=== PATIENT | female | born 1970 | race Two or more races ===

== ENCOUNTER 2023-04-24 07:47 | Inpatient (IN) | payer OTHER ==
[2023-04-24] VITALS (39 sets, daily range): BP systolic 82–167; BP diastolic 52–97; TEMP 97.4–98.5; O2SAT 90–100
[~2023-04-24] VITALS: Ht 144.8 cm; Wt 104.3 kg
[2023-04-24] MEDS ORDERED: IBUP-1955 PO (09:30)
[2023-04-24] MEDS ORDERED: TAMS-12 PO (09:30)
[2023-04-24] MEDS ORDERED: OXYC-128 PO (09:30)
[2023-04-24] MEDS ORDERED: MORPHINE SULFATE INJ 2 MG/ML DISP.SYRIN IV PRN (10:30)
[2023-04-24] MEDS ORDERED: MAG HYDROX/AL HYDROX/SIMETH 30 ML UDC PO PRN (10:30)
[2023-04-24] MEDS ORDERED: ONDANSETRON HCL/PF 4 MG/2 ML VIAL IVP PRN (10:30)
[2023-04-24] MEDS ORDERED: Z GUARD REMEDY 4 OZ OINT TP PRN (10:30)
[2023-04-24 10:41] LABS: EOSINOPHILS # (AUTO) 0.9 K/uL (0.0-0.7); EOSINOPHILS % (AUTO) 7.6 % (0.0-6.0); MONOCYTES # (AUTO) 0.5 K/uL (0.1-1.30); RED BLOOD CELL COUNT(AUTO) 4.07 MIL/uL (4.0-5.2)
[2023-04-24 10:51] LABS: CALCIUM, SERUM 7.8 mg/dL (8.5-10.1); CREATININE 2.5 mg/dL (0.6-1.3); POTASSIUM 4.4 mmol/L (3.5-5.1)
[2023-04-24 10:52] LABS: INR 1.45 (0.91-1.10); PARTIAL THROMBOPLASTIN TIME 41.9 SEC (24.3-34.3)
[2023-04-24 10:56] LABS: BASOPHILS % (AUTO) 0.2 % (0.0-2.0); HEMATOCRIT 37 % (33-45); HEMOGLOBIN 12.3 g/dL (11.5-14.8); LYMPHOCYTES # (AUTO) 1.1 K/uL (0.8-4.8); LYMPHOCYTES % (AUTO) 9.9 % (20.0-44.0); MEAN CORPUSCULAR HEMOGLOBIN 30 PG (26.0-33.0); MEAN CORPUSCULAR HGB CONC 34 g/dl (31.0-36.0); MEAN CORPUSCULAR VOLUME 90 fL (82-100); MONOCYTES % (AUTO) 4.4 % (2.0-12.0); NEUTROPHILS # (AUTO) 8.9 K/uL (1.8-8.9); NEUTROPHILS % (AUTO) 77.9 % (43.0-81.0); RED CELL DISTRIBUTION WIDTH 15.4 % (11.5-15.0); WHITE BLOOD COUNT (AUTO) 11.5 K/uL (4.3-11.0)
[2023-04-24 11:00] LABS: PLATELET COUNT (AUTO) 14 K/uL (150-450)
[2023-04-24] MEDS: PANTOPRAZOLE 40 MG VIAL IV SCH (11:03)
[2023-04-24] MEDS: IV NS 0.9% 1,000 ML IV PRN ×2 (11:03→22:15)
[2023-04-24] MEDS: MEROPENEM 1 G in IV NS 0.9% 100 ML IV SCH ×2 (11:23→21:10)
[2023-04-24 12:59] LABS: BAND % (MANUAL) 18 % (0.0-5.0); LYMPHOCYTES % (MANUAL) 9 % (16-48); MONOCYTES % (MANUAL) 8 % (0-11.0); MYELOCYTES % 2 % (0-0); NEUTROPHILS % (MANUAL) 63 (42-76)
[2023-04-24 13:00] LABS: PLATELET ESTIMATE DECREASED
[2023-04-24] MEDS ORDERED: ROCURONIUM BROMIDE 50 MG/5 ML ONE (13:10)
[2023-04-24] MEDS ORDERED: SEVOFLURANE 250 ML BOTTLE IH ONE (13:10)
[2023-04-24] MEDS ORDERED: FENTANYL PF 100MCG/2ML AMPUL ONE (13:38)
[2023-04-24] MEDS: PHENYLEPHRINE 50 MG in IV NS 0.9% 245 ML IV PRN (15:03)
[2023-04-24] MEDS: PROPOFOL 100 ML IV PRN ×3 (15:51→22:58)
[2023-04-24 16:17] LABS: ABG BASE EXCESS -10.3 mmol/L; ABG OXYGEN SATURATION 89.4 % (92.0-98.5); ABG PCO2 54.1 mmHg (35.0-45.0); ABG PH 7.155 (7.350-7.450); ABG PO2 66.6 mmHg (75.0-100.0); AaDO2 192.7 mmHg; COHb 0.4 % (0.5-1.5); MetHb 0.3 % (0.0-1.5); O2Hb 88.8 % (94.0-97.0); PEEP,BG 5 cm H2O; SITE, ABG Right Brachial; VT, ABG 500 mL
[2023-04-24 17:50] LABS: ABG BASE EXCESS -6.7 mmol/L; ABG OXYGEN SATURATION 98.9 % (92.0-98.5); ABG PCO2 31.7 mmHg (35.0-45.0); ABG PH 7.363 (7.350-7.450); ABG PO2 157.7 mmHg (75.0-100.0); ABG TOTAL HEMOGLOBIN 11.8 G/dL (12.0-16.0); AaDO2 379.4 mmHg; COHb 0.1 % (0.5-1.5); MetHb 0.2 % (0.0-1.5); O2Hb 98.6 % (94.0-97.0); PEEP,BG 5 cm H2O; SITE, ABG Right Brachial; VENT MODE, BG AC 45%; VT, ABG 500 mL
[2023-04-24] MEDS ORDERED: ANESTHESIA TRAY IN PYXIS 1 EA TRAY MC ONE (17:50)
[2023-04-24 20:22] LABS: CREATININE, URINE 53.5 MG/DL (30.0-125.0); URINE TOTAL PROTEIN 206.5 mg/dL (0-11.9)
[2023-04-24 20:37] LABS: ABG BASE EXCESS -4.4 mmol/L; ABG OXYGEN SATURATION 96.8 % (92.0-98.5); ABG PCO2 37.6 mmHg (35.0-45.0); ABG PH 7.356 (7.350-7.450); ABG PO2 92.3 mmHg (75.0-100.0); AaDO2 294.1 mmHg; COHb 0.3 % (0.5-1.5); MetHb 0.3 % (0.0-1.5); O2Hb 96.2 % (94.0-97.0); PEEP,BG 10 cm H2O; SITE, ABG Left Radial; VT, ABG 400 mL
[2023-04-24 20:41] LABS: BASOPHILS % (AUTO) 0.3 % (0.0-2.0); EOSINOPHILS # (AUTO) 0.6 K/uL (0.0-0.7); EOSINOPHILS % (AUTO) 6.1 % (0.0-6.0); HEMATOCRIT 31 % (33-45); HEMOGLOBIN 10.4 g/dL (11.5-14.8); LYMPHOCYTES # (AUTO) 1.2 K/uL (0.8-4.8); LYMPHOCYTES % (AUTO) 12.2 % (20.0-44.0); MEAN CORPUSCULAR HEMOGLOBIN 30 PG (26.0-33.0); MEAN CORPUSCULAR HGB CONC 34 g/dl (31.0-36.0); MEAN CORPUSCULAR VOLUME 90 fL (82-100); MONOCYTES # (AUTO) 0.6 K/uL (0.1-1.30); MONOCYTES % (AUTO) 5.7 % (2.0-12.0); NEUTROPHILS # (AUTO) 7.3 K/uL (1.8-8.9); NEUTROPHILS % (AUTO) 75.7 % (43.0-81.0); RED BLOOD CELL COUNT(AUTO) 3.43 MIL/uL (4.0-5.2); RED CELL DISTRIBUTION WIDTH 15.7 % (11.5-15.0); WHITE BLOOD COUNT (AUTO) 9.6 K/uL (4.3-11.0)
[2023-04-24 20:47] LABS: APPEARANCE,URINE BLOODY (CLEAR); COLOR,URINE RED (YELLOW)
[2023-04-24 20:50] LABS: PLATELET COUNT (AUTO) 44 K/uL (150-450)
[2023-04-24 20:58] LABS: RBC,URINE TOO NUMEROUS TO COUN /HPF (0-2)
[2023-04-24 20:59] LABS: BACTERIA,URINE 1+ /HPF (None Seen); SQUAMOUS EPITHELIAL CELL,UR 0-2 /HPF (None Seen); WBC,URINE 21-50 /HPF (0-3)
[2023-04-24 21:09] LABS: EOSINOPHIL,URINE None Seen
[2023-04-24 21:14] LABS: ANISOCYTOSIS 1+; BAND % (MANUAL) 7 % (0.0-5.0); EOSINOPHILS % (MANUAL) 1 % (0-4); LYMPHOCYTES % (MANUAL) 13 % (16-48); MONOCYTES % (MANUAL) 8 % (0-11.0); NEUTROPHILS % (MANUAL) 70 (42-76); PLATELET ESTIMATE DECRE; REACTIVE LYMPHOCYTES 1 % (0-0)
[2023-04-24 21:15] LABS: TEAR DROP CELLS 2+
[2023-04-24] MEDS: ACETAMINOPHEN 650 MG/SUPP.RECT RC PRN (23:33)
[2023-04-25] VITALS (40 sets, daily range): BP systolic 83–112; BP diastolic 43–70; TEMP 98.1–100.1; O2SAT 95–100
[2023-04-25] MEDS: PROPOFOL 100 ML IV PRN ×6 (02:13→23:11)
[2023-04-25] MEDS: IV NS 0.9% 1,000 ML IV PRN ×2 (05:42→15:33)
[2023-04-25] MEDS: ACETAMINOPHEN 650 MG/SUPP.RECT RC PRN (05:55)
[2023-04-25 05:59] LABS: BASOPHILS % (AUTO) 0.3 % (0.0-2.0); EOSINOPHILS # (AUTO) 0.3 K/uL (0.0-0.7); EOSINOPHILS % (AUTO) 3.5 % (0.0-6.0); HEMATOCRIT 30 % (33-45); HEMOGLOBIN 10.4 g/dL (11.5-14.8); LYMPHOCYTES % (AUTO) 13.9 % (20.0-44.0); MEAN CORPUSCULAR HEMOGLOBIN 31 PG (26.0-33.0); MEAN CORPUSCULAR HGB CONC 34 g/dl (31.0-36.0); MEAN CORPUSCULAR VOLUME 91 fL (82-100); MONOCYTES # (AUTO) 0.8 K/uL (0.1-1.30); MONOCYTES % (AUTO) 11.6 % (2.0-12.0); NEUTROPHILS % (AUTO) 70.7 % (43.0-81.0); RED BLOOD CELL COUNT(AUTO) 3.34 MIL/uL (4.0-5.2); RED CELL DISTRIBUTION WIDTH 16.1 % (11.5-15.0); WHITE BLOOD COUNT (AUTO) 7.1 K/uL (4.3-11.0)
[2023-04-25 06:03] LABS: PLATELET COUNT (AUTO) 26 K/uL (150-450)
[2023-04-25 06:05] LABS: ALANINE AMINOTRANSFERASE 64 U/L (12-78); ALBUMIN 1.9 g/dL (3.4-5.0); ALKALINE PHOSPHATASE 119 U/L (46-116); BILIRUBIN,DIRECT 1.5 mg/dL (0.0-0.2); BILIRUBIN,TOTAL 2.5 mg/dL (0.2-1.0); CALCIUM, SERUM 7.1 mg/dL (8.5-10.1); CARBON DIOXIDE 23 mmol/L (21-32); CHLORIDE 106 mmol/L (98-107); CREATININE 1.4 mg/dL (0.6-1.3); GLUCOSE 77 mg/dL (74-106); MAGNESIUM 2.2 mg/dL (1.8-2.4); PHOSPHORUS 2.2 mg/dL (2.5-4.9); POTASSIUM 3.8 mmol/L (3.5-5.1); SODIUM SERUM 138 mmol/L (136-145); TOTAL PROTEIN, SERUM 5.3 g/dL (6.4-8.2); UREA NITROGEN, BLOOD 32 mg/dL (7-18)
[2023-04-25 06:17] LABS: CHOLESTEROL 94 mg/dL (<200); CREATINE KINASE, TOTAL 1767 U/L (26-192); LDL 20 mg/dL (0-99); THYROID STIMULATING HORMONE 0.655 uIU/mL (0.358-3.74); TRIGLYCERIDES 587 mg/dL (30-150)
[2023-04-25 06:30] LABS: HDL CHOLESTEROL < 10 mg/dL (40-60)
[2023-04-25 06:40] LABS: ASPARTATE AMINOTRANSFERASE 114 U/L (15-37)
[2023-04-25 07:02] LABS: BAND % (MANUAL) 4 % (0.0-5.0); EOSINOPHILS % (MANUAL) 3 % (0-4); LYMPHOCYTES % (MANUAL) 11 % (16-48); MONOCYTES % (MANUAL) 9 % (0-11.0); NEUTROPHILS % (MANUAL) 73 (42-76)
[2023-04-25 07:04] LABS: PLATELET ESTIMATE DECREASED
[2023-04-25] MEDS: MEROPENEM 1 G in IV NS 0.9% 100 ML IV SCH ×2 (08:11→20:31)
[2023-04-25] MEDS: PANTOPRAZOLE 40 MG VIAL IV SCH (08:11)
[2023-04-25 09:26] LABS: ABG BASE EXCESS -4.4 mmol/L; ABG OXYGEN SATURATION 98.7 % (92.0-98.5); ABG PCO2 37.5 mmHg (35.0-45.0); ABG PH 7.358 (7.350-7.450); ABG PO2 174.2 mmHg (75.0-100.0); ABG TOTAL HEMOGLOBIN 11.2 G/dL (12.0-16.0); AaDO2 212.4 mmHg; COHb 0.3 % (0.5-1.5); MetHb 0.5 % (0.0-1.5); O2Hb 97.9 % (94.0-97.0); SITE, ABG Right Radial
[2023-04-25 14:47] LABS: HIV-1 p24 ANTIGEN NON REACTIVE (NONREACTIVE); HIV-1/2 ANTIBODY NON REACTIVE (NONREACTIVE)
[2023-04-25] MEDS ORDERED: Sodium Phosphate 15 MMOL in IV NS 0.9% 245 ML IV ONE (16:00)
[2023-04-26] VITALS (57 sets, daily range): BP systolic 67–182; BP diastolic 36–122; TEMP 97.6–100.1; O2SAT 90–100
[2023-04-26] MEDS: IV NS 0.9% 1,000 ML IV PRN ×2 (02:16→22:31)
[2023-04-26 04:19] LABS: BASOPHILS % (AUTO) 0.2 % (0.0-2.0); EOSINOPHILS # (AUTO) 0.2 K/uL (0.0-0.7); EOSINOPHILS % (AUTO) 2.3 % (0.0-6.0); HEMATOCRIT 32 % (33-45); HEMOGLOBIN 10.8 g/dL (11.5-14.8); LYMPHOCYTES # (AUTO) 0.8 K/uL (0.8-4.8); MEAN CORPUSCULAR HEMOGLOBIN 31 PG (26.0-33.0); MEAN CORPUSCULAR HGB CONC 34 g/dl (31.0-36.0); MEAN CORPUSCULAR VOLUME 90 fL (82-100); MONOCYTES % (AUTO) 9.4 % (2.0-12.0); NEUTROPHILS # (AUTO) 8.1 K/uL (1.8-8.9); NEUTROPHILS % (AUTO) 80.1 % (43.0-81.0); RED BLOOD CELL COUNT(AUTO) 3.53 MIL/uL (4.0-5.2); RED CELL DISTRIBUTION WIDTH 16.1 % (11.5-15.0); WHITE BLOOD COUNT (AUTO) 10.1 K/uL (4.3-11.0)
[2023-04-26 04:41] LABS: PLATELET COUNT (AUTO) 24 K/uL (150-450)
[2023-04-26 04:56] LABS: ALBUMIN 1.7 g/dL (3.4-5.0); BILIRUBIN,TOTAL 3.2 mg/dL (0.2-1.0); CALCIUM, SERUM 7.3 mg/dL (8.5-10.1); CREATININE 1.1 mg/dL (0.6-1.3); MAGNESIUM 2.4 mg/dL (1.8-2.4); PHOSPHORUS 3.2 mg/dL (2.5-4.9); POTASSIUM 4.1 mmol/L (3.5-5.1); TOTAL PROTEIN, SERUM 5.4 g/dL (6.4-8.2)
[2023-04-26 05:06] LABS: BAND % (MANUAL) 4 % (0.0-5.0); EOSINOPHILS % (MANUAL) 3 % (0-4); LYMPHOCYTES % (MANUAL) 8 % (16-48); MONOCYTES % (MANUAL) 8 % (0-11.0); NEUTROPHILS % (MANUAL) 77 (42-76)
[2023-04-26 05:07] LABS: ANISOCYTOSIS 1+; PLATELET ESTIMATE DECREASED
[2023-04-26] MEDS: PROPOFOL 100 ML IV PRN ×6 (05:07→23:40)
[2023-04-26 06:07] LABS: PTH, INTACT 69 pg/mL (15-65)
[2023-04-26] MEDS: PANTOPRAZOLE 40 MG VIAL IV SCH (08:19)
[2023-04-26] MEDS: MEROPENEM 1 G in IV NS 0.9% 100 ML IV SCH (08:19)
[2023-04-26] MEDS ORDERED: DC PROPOFOL WHEN EXTUBATED XX PRN (09:00)
[2023-04-26 09:08] LABS: *SPE A/G RATIO 0.8 (0.7-1.7); *SPE ALBUMIN 2.1 g/dL (2.9-4.4); *SPE ALPHA-1-GLOBULIN 0.4 g/dL (0.0-0.4); *SPE ALPHA-2-GLOBULIN 0.6 g/dL (0.4-1.0); *SPE BETA GLOBULIN 0.8 g/dL (0.7-1.3); *SPE GLOBULIN, TOTAL 2.6 g/dL (2.2-3.9); *SPE M-SPIKE Not Observed g/dL (Not Observed); *SPE PROTEIN TOTAL 4.7 g/dL (6.0-8.5); *SPEGAMMA GLOBULIN 0.8 g/dL (0.4-1.8)
[2023-04-26 10:04] LABS: ABG BASE EXCESS -3.8 mmol/L; ABG OXYGEN SATURATION 93.5 % (92.0-98.5); ABG PCO2 31.8 mmHg (35.0-45.0); ABG PH 7.413 (7.350-7.450); ABG PO2 67.6 mmHg (75.0-100.0); ABG TOTAL HEMOGLOBIN 12.2 G/dL (12.0-16.0); AaDO2 108.9 mmHg; COHb 0.1 % (0.5-1.5); MetHb 0.2 % (0.0-1.5); O2Hb 93.2 % (94.0-97.0); SITE, ABG Right Radial
[2023-04-26] MEDS: CEFTRIAXONE 2 G in IV D5W 100 ML IV SCH (10:54)
[2023-04-26] MEDS: ACETAMINOPHEN 650 MG/SUPP.RECT RC PRN (12:09)
[2023-04-26 12:17] LABS: ABG BASE EXCESS -4.5 mmol/L; ABG PCO2 30.5 mmHg (35.0-45.0); ABG PH 7.413 (7.350-7.450); ABG PO2 56.3 mmHg (75.0-100.0); AaDO2 193.8 mmHg; COHb 0.6 % (0.5-1.5); MetHb 0.2 % (0.0-1.5); O2Hb 89.3 % (94.0-97.0); SITE, ABG Right Radial
[2023-04-26 14:40] LABS: ABG BASE EXCESS -6.9 mmol/L; ABG OXYGEN SATURATION 98.6 % (92.0-98.5); ABG PH 7.496 (7.350-7.450); ABG PO2 149.3 mmHg (75.0-100.0); ABG TOTAL HEMOGLOBIN 11.1 G/dL (12.0-16.0); AaDO2 185.8 mmHg; COHb 0.3 % (0.5-1.5); MetHb 0.1 % (0.0-1.5); O2Hb 98.2 % (94.0-97.0); SITE, ABG Right Radial
[2023-04-26 14:52] LABS: INR 1.27 (0.91-1.10); IRON, SERUM 32 ug/dl (50-175); PARTIAL THROMBOPLASTIN TIME 26.8 SEC (24.3-34.3); PROTHROMBIN TIME 13.3 SECS (9.2-11.1); TOTAL IRON BINDING CAPACITY 158 ug/dl (250-450)
[2023-04-26] MEDS ORDERED: SUCCINYLCHOLINE CHLORIDE 20 MG/ML VIAL IV ONE (14:55)
[2023-04-26] MEDS ORDERED: ETOMIDATE 2 MG/ML VIAL IV ONE (14:55)
[2023-04-26] MEDS: PHENYLEPHRINE 50 MG in IV NS 0.9% 245 ML IV PRN (15:12)
[2023-04-26 15:14] LABS: D-DIMER 31.75 mg/L(FEU (0.17-0.50)
[2023-04-26 16:45] LABS: FERRITIN 221 ng/mL (8-388)
[2023-04-26] MEDS: PHENYLEPHRINE 100 MG in IV NS 0.9% 240 ML IV PRN (19:07)
[2023-04-26 20:32] LABS: RHEUMATOID FACTOR SCREEN NEGATIVE (NEGATIVE)
[2023-04-26] MEDS ORDERED: NOREPINEPHRINE 32 MG in IV NS 0.9% 218 ML IV PRN (21:30)
[2023-04-26] MEDS ORDERED: IV NS 0.9% 500 ML IV ONE (21:30)
[2023-04-26] MEDS ORDERED: IV NS 0.9% 1,000 ML BAG IV PRN (21:30)
[2023-04-26] MEDS: HYDROCORTISONE SOD SUCCINATE 100 MG/2 ML VIAL IV SCH (21:38)
[2023-04-26] MEDS: NOREPINEPHRINE 32 MG in IV NS 0.9% 218 ML IV PRN (21:40)
[2023-04-27] VITALS (79 sets, daily range): BP systolic 75–172; BP diastolic 47–94; TEMP 98.5–101.6; O2SAT 93–100
[2023-04-27] MEDS: PHENYLEPHRINE 100 MG in IV NS 0.9% 240 ML IV PRN ×5 (00:13→21:22)
[2023-04-27] MEDS: PROPOFOL 100 ML IV PRN ×8 (02:02→22:49)
[2023-04-27 04:41] LABS: BASOPHILS # (AUTO) 0.1 K/uL (0.0-0.2); BASOPHILS % (AUTO) 0.5 % (0.0-2.0); EOSINOPHILS # (AUTO) 0.4 K/uL (0.0-0.7); EOSINOPHILS % (AUTO) 1.9 % (0.0-6.0); HEMATOCRIT 25 % (33-45); HEMOGLOBIN 8.7 g/dL (11.5-14.8); LYMPHOCYTES # (AUTO) 3.6 K/uL (0.8-4.8); LYMPHOCYTES % (AUTO) 16.5 % (20.0-44.0); MEAN CORPUSCULAR HEMOGLOBIN 32 PG (26.0-33.0); MEAN CORPUSCULAR HGB CONC 35 g/dl (31.0-36.0); MEAN CORPUSCULAR VOLUME 91 fL (82-100); NEUTROPHILS # (AUTO) 15.8 K/uL (1.8-8.9); NEUTROPHILS % (AUTO) 72.1 % (43.0-81.0); PLATELET COUNT (AUTO) 75 K/uL (150-450); RED BLOOD CELL COUNT(AUTO) 2.75 MIL/uL (4.0-5.2); RED CELL DISTRIBUTION WIDTH 16.2 % (11.5-15.0); WHITE BLOOD COUNT (AUTO) 21.9 K/uL (4.3-11.0)
[2023-04-27 04:46] LABS: CALCIUM, SERUM 6.9 mg/dL (8.5-10.1); CREATININE 2.3 mg/dL (0.6-1.3); POTASSIUM 4.9 mmol/L (3.5-5.1)
[2023-04-27 05:04] LABS: INR 1.32 (0.91-1.10); PARTIAL THROMBOPLASTIN TIME 28.8 SEC (24.3-34.3); PROTHROMBIN TIME 13.7 SECS (9.2-11.1)
[2023-04-27 05:53] LABS: D-DIMER 34.77 mg/L(FEU (0.17-0.50)
[2023-04-27] MEDS: IV NS 0.9% 1,000 ML IV PRN ×3 (05:56→19:18)
[2023-04-27 06:56] LABS: BAND % (MANUAL) 3 % (0.0-5.0); LYMPHOCYTES % (MANUAL) 8 % (16-48); MONOCYTES % (MANUAL) 5 % (0-11.0); NEUTROPHILS % (MANUAL) 84 (42-76)
[2023-04-27 06:57] LABS: ANISOCYTOSIS 1+; PLATELET ESTIMATE DECREASED
[2023-04-27 07:07] LABS: IMMUNOGLOBULIN A, SERUM 405 mg/dL (87-352); IMMUNOGLOBULIN G, SERUM 1030 mg/dL (586-1602); IMMUNOGLOBULIN M, SERUM 38 mg/dL (26-217)
[2023-04-27 08:17] LABS: ABG BASE EXCESS -6.6 mmol/L; ABG OXYGEN SATURATION 93.9 % (92.0-98.5); ABG PH 7.308 (7.350-7.450); ABG PO2 78.2 mmHg (75.0-100.0); ABG TOTAL HEMOGLOBIN 9.4 G/dL (12.0-16.0); AaDO2 162.2 mmHg; COHb 0.3 % (0.5-1.5); MetHb 0.2 % (0.0-1.5); O2Hb 93.4 % (94.0-97.0); SITE, ABG Left Radial; VENT MODE, BG AC 18 500 40% +0
[2023-04-27] MEDS: PANTOPRAZOLE 40 MG VIAL IV SCH (09:00)
[2023-04-27 10:07] LABS: FOLIC ACID 11.4 ng/mL (>3.0)
[2023-04-27] MEDS: CEFTRIAXONE 2 G in IV D5W 100 ML IV SCH (10:53)
[2023-04-27] MEDS: HYDROCORTISONE SOD SUCCINATE 100 MG/2 ML VIAL IV SCH ×3 (11:41→17:45)
[2023-04-27 12:07] LABS: FREE KAPPA LT CHAINS SERUM 60.6 mg/L (3.3-19.4); FREE LAMBDA LT CHAIN SERUM 34.7 mg/L (5.7-26.3); KAPPA/LAMBDA RATIO SERUM 1.75 (0.26-1.65)
[2023-04-27] MEDS: JEVITY 1.2 CAL 1,000 ML BOTTLE NG PRN (14:15)
[2023-04-27 15:07] LABS: HEPATITIS B SURFACE AB Reactive (.)
[2023-04-27] MEDS ORDERED: CEFEPIME 1 GM in IV D5W 50 ML IV SCH (17:00)
[2023-04-27] MEDS ORDERED: CEFEPIME 2 GM in IV D5W 100 ML IV SCH (21:00)
[2023-04-27] MEDS: NOREPINEPHRINE 32 MG in IV NS 0.9% 218 ML IV PRN (21:47)
[2023-04-28] VITALS (100 sets, daily range): BP systolic 97–159; BP diastolic 48–92; TEMP 97.9–99.6; O2SAT 92–100
[2023-04-28] MEDS: PROPOFOL 100 ML IV PRN ×3 (01:30→06:39)
[2023-04-28] MEDS: IV NS 0.9% 1,000 ML IV PRN (03:04)
[2023-04-28] MEDS: PHENYLEPHRINE 100 MG in IV NS 0.9% 240 ML IV PRN ×2 (04:26→18:15)
[2023-04-28 04:40] LABS: BASOPHILS # (AUTO) 0.1 K/uL (0.0-0.2); BASOPHILS % (AUTO) 0.3 % (0.0-2.0); EOSINOPHILS # (AUTO) 0.2 K/uL (0.0-0.7); EOSINOPHILS % (AUTO) 0.5 % (0.0-6.0); LYMPHOCYTES # (AUTO) 5.7 K/uL (0.8-4.8); MEAN CORPUSCULAR HEMOGLOBIN 32 PG (26.0-33.0); MEAN CORPUSCULAR HGB CONC 35 g/dl (31.0-36.0); MEAN CORPUSCULAR VOLUME 92 fL (82-100); MONOCYTES # (AUTO) 3.7 K/uL (0.1-1.30); MONOCYTES % (AUTO) 10.5 % (2.0-12.0); NEUTROPHILS # (AUTO) 25.8 K/uL (1.8-8.9); NEUTROPHILS % (AUTO) 72.7 % (43.0-81.0); PLATELET COUNT (AUTO) 109 K/uL (150-450); RED BLOOD CELL COUNT(AUTO) 2.16 MIL/uL (4.0-5.2); RED CELL DISTRIBUTION WIDTH 16.5 % (11.5-15.0)
[2023-04-28 04:59] LABS: HEMATOCRIT 20 % (33-45); HEMOGLOBIN 6.9 g/dL (11.5-14.8); WHITE BLOOD COUNT (AUTO) 35.5 K/uL (4.3-11.0)
[2023-04-28 05:04] LABS: ALBUMIN 1.6 g/dL (3.4-5.0); BILIRUBIN,TOTAL 3.4 mg/dL (0.2-1.0); CALCIUM, SERUM 6.6 mg/dL (8.5-10.1); CREATININE 1.8 mg/dL (0.6-1.3); MAGNESIUM 3.2 mg/dL (1.8-2.4); PHOSPHORUS 3.8 mg/dL (2.5-4.9); POTASSIUM 4.2 mmol/L (3.5-5.1); TOTAL PROTEIN, SERUM 5.5 g/dL (6.4-8.2)
[2023-04-28] MEDS ORDERED: CEFEPIME 1 GM VIAL ONE (06:11)
[2023-04-28] MEDS: CEFEPIME 2 GM in IV D5W 50 ML IV SCH ×3 (06:47→21:33)
[2023-04-28 07:37] LABS: BAND % (MANUAL) 1 % (0.0-5.0); LYMPHOCYTES % (MANUAL) 15 % (16-48); MONOCYTES % (MANUAL) 18 % (0-11.0); MYELOCYTES % 1 % (0-0); NEUTROPHILS % (MANUAL) 65 (42-76); PLATELET ESTIMATE DECREASED
[2023-04-28] MEDS: PANTOPRAZOLE 40 MG/PACK PACK NG SCH (09:57)
[2023-04-28] MEDS: HYDROCORTISONE SOD SUCCINATE 100 MG/2 ML VIAL IV SCH ×2 (09:57→18:22)
[2023-04-28] MEDS ORDERED: ACETAMINOPHEN 325 MG TABLET PO ONE (11:30)
[2023-04-28] MEDS ORDERED: diphenhydrAMINE HCL 50 MG/ML VIAL IV ONE (11:30)
[2023-04-28 12:34] LABS: INR 1.21 (0.91-1.10); PROTHROMBIN TIME 12.7 SECS (9.2-11.1)
[2023-04-28 13:13] LABS: D-DIMER 16.39 mg/L(FEU (0.17-0.50)
[2023-04-28] MEDS: FENTANYL CITRAT IV 2,500 MCG in IV NS 0.9% 200 ML IV PRN (14:54)
[2023-04-28] MEDS: MIDAZOLAM HCL 100 MG in IV NS 0.9% 80 ML IV PRN (15:02)
[2023-04-28] MEDS ORDERED: FUROSEMIDE 20 MG/2 ML VIAL IV ONE (18:30)
[2023-04-28] MEDS ORDERED: NOREPINEPHRINE 8 MG in IV NS 0.9% 250ML IV PRN (21:00)
[2023-04-29] VITALS (77 sets, daily range): BP systolic 99–148; BP diastolic 46–98; TEMP 98.4–101.4; O2SAT 70–99
[2023-04-29] MEDS: CEFEPIME 2 GM in IV D5W 50 ML IV SCH ×3 (04:46→21:00)
[2023-04-29 05:24] LABS: CALCIUM, SERUM 7.1 mg/dL (8.5-10.1); CREATININE 1.5 mg/dL (0.6-1.3); POTASSIUM 4.9 mmol/L (3.5-5.1)
[2023-04-29 07:15] LABS: BASOPHILS % (AUTO) 0.1 % (0.0-2.0); EOSINOPHILS % (AUTO) 0.2 % (0.0-6.0); HEMATOCRIT 26 % (33-45); HEMOGLOBIN 8.4 g/dL (11.5-14.8); LYMPHOCYTES # (AUTO) 2.3 K/uL (0.8-4.8); LYMPHOCYTES % (AUTO) 12.1 % (20.0-44.0); MEAN CORPUSCULAR HEMOGLOBIN 30 PG (26.0-33.0); MEAN CORPUSCULAR HGB CONC 33 g/dl (31.0-36.0); MEAN CORPUSCULAR VOLUME 92 fL (82-100); MONOCYTES # (AUTO) 1.4 K/uL (0.1-1.30); MONOCYTES % (AUTO) 7.1 % (2.0-12.0); NEUTROPHILS # (AUTO) 15.5 K/uL (1.8-8.9); NEUTROPHILS % (AUTO) 80.5 % (43.0-81.0); PLATELET COUNT (AUTO) 90 K/uL (150-450); RED BLOOD CELL COUNT(AUTO) 2.76 MIL/uL (4.0-5.2); RED CELL DISTRIBUTION WIDTH 15.8 % (11.5-15.0); WHITE BLOOD COUNT (AUTO) 19.3 K/uL (4.3-11.0)
[2023-04-29] MEDS: PANTOPRAZOLE 40 MG/PACK PACK NG SCH (08:11)
[2023-04-29] MEDS: HYDROCORTISONE SOD SUCCINATE 100 MG/2 ML VIAL IV SCH ×2 (08:11→16:12)
[2023-04-29] MEDS ORDERED: IV D5W 500 ML IV ONE (10:00)
[2023-04-29 11:28] LABS: LYMPHOCYTES % (MANUAL) 11 % (16-48); METAMYELOCYTES % 2 % (0-0); MONOCYTES % (MANUAL) 8 % (0-11.0); NEUTROPHILS % (MANUAL) 79 (42-76); PLATELET ESTIMATE DECREASED
[2023-04-29] MEDS: JEVITY 1.2 CAL 1,000 ML BOTTLE NG PRN (11:49)
[2023-04-29] MEDS: SOD FERRIC GLUC 125 MG in IV NS 0.9% 100 ML IV SCH (14:47)
[2023-04-29] MEDS: MIDAZOLAM HCL 100 MG in IV NS 0.9% 80 ML IV PRN (14:51)
[2023-04-29] MEDS ORDERED: JEVITY 1.2 CAL 1,000 ML BOTTLE NG PRN (15:00)
[2023-04-29] MEDS ORDERED: MAG HYDROX/AL HYDROX/SIMETH 30 ML UDC NG PRN (15:35)
[2023-04-29] MEDS: FENTANYL CITRAT IV 2,500 MCG in IV NS 0.9% 200 ML IV PRN (15:40)
[2023-04-29] MEDS: ACETAMINOPHEN 650 MG/SUPP.RECT RC PRN (16:56)
[2023-04-29] MEDS ORDERED: AMIODARONE 150 MG in IV D5W 100 ML IV ONE (17:00)
[2023-04-29] MEDS: AMIODARONE 450 MG in IV D5W 241 ML IV PRN ×2 (17:20→17:43)
[2023-04-30] VITALS (58 sets, daily range): BP systolic 100–146; BP diastolic 54–73; TEMP 97.8–101.4; O2SAT 92–100
[2023-04-30] MEDS: ACETAMINOPHEN 650 MG/SUPP.RECT RC PRN (00:21)
[2023-04-30] MEDS: CEFEPIME 2 GM in IV D5W 50 ML IV SCH (05:03)
[2023-04-30 05:36] LABS: CALCIUM, SERUM 6.7 mg/dL (8.5-10.1); CREATININE 1.3 mg/dL (0.6-1.3); POTASSIUM 4.9 mmol/L (3.5-5.1)
[2023-04-30 07:06] LABS: BASOPHILS % (AUTO) 0.2 % (0.0-2.0); HEMATOCRIT 26 % (33-45); HEMOGLOBIN 8.4 g/dL (11.5-14.8); LYMPHOCYTES # (AUTO) 1.5 K/uL (0.8-4.8); LYMPHOCYTES % (AUTO) 10.6 % (20.0-44.0); MEAN CORPUSCULAR HEMOGLOBIN 30 PG (26.0-33.0); MEAN CORPUSCULAR HGB CONC 32 g/dl (31.0-36.0); MEAN CORPUSCULAR VOLUME 94 fL (82-100); MONOCYTES # (AUTO) 0.8 K/uL (0.1-1.30); MONOCYTES % (AUTO) 6.1 % (2.0-12.0); NEUTROPHILS # (AUTO) 11.4 K/uL (1.8-8.9); NEUTROPHILS % (AUTO) 83.1 % (43.0-81.0); PLATELET COUNT (AUTO) 100 K/uL (150-450); RED BLOOD CELL COUNT(AUTO) 2.74 MIL/uL (4.0-5.2); RED CELL DISTRIBUTION WIDTH 16.2 % (11.5-15.0); WHITE BLOOD COUNT (AUTO) 13.7 K/uL (4.3-11.0)
[2023-04-30] MEDS: AMIODARONE 450 MG in IV D5W 241 ML IV PRN ×3 (07:47)
[2023-04-30] MEDS: PANTOPRAZOLE 40 MG/PACK PACK NG SCH (08:01)
[2023-04-30] MEDS: HYDROCORTISONE SOD SUCCINATE 100 MG/2 ML VIAL IV SCH ×2 (08:01→16:05)
[2023-04-30] MEDS ORDERED: FUROSEMIDE 20 MG/2 ML VIAL IV ONE (08:30)
[2023-04-30 09:07] LABS: *ANA ANTI-CENTROMERE B AB <0.2 AI (0.0-0.9); *ANA ANTI-DNA(DS) AB, QN <1 IU/mL (0-9); *ANA ANTI-JO-1 <0.2 AI (0.0-0.9); *ANA ANTICHROMATIN ANTIBODY <0.2 AI (0.0-0.9); *ANA RNP ANTIBODIES 0.2 AI (0.0-0.9); *ANA SJOGREN'S ANTI-SS-A <0.2 AI (0.0-0.9); *ANA SJOGREN'S ANTI-SS-B <0.2 AI (0.0-0.9); *ANAANTI-SCLERODERMA-70 AB <0.2 AI (0.0-0.9); *ANASMITH AB <0.2 AI (0.0-0.9)
[2023-04-30] MEDS: SOD FERRIC GLUC 125 MG in IV NS 0.9% 100 ML IV SCH (13:45)
[2023-04-30] MEDS: MIDAZOLAM HCL 100 MG in IV NS 0.9% 80 ML IV PRN (15:47)
[2023-04-30] MEDS: FENTANYL CITRAT IV 2,500 MCG in IV NS 0.9% 200 ML IV PRN (15:51)
[2023-04-30] MEDS: GLUCERNA 1.2 1,000 ML BOTTLE NG PRN (17:03)
[2023-04-30] MEDS: CEFEPIME 2 GM in IV D5W 100 ML IV SCH (21:00)
[2023-05-01] VITALS (25 sets, daily range): BP systolic 108–160; BP diastolic 58–96; TEMP 98.2–99.1; O2SAT 90–100
[2023-05-01 05:52] LABS: HEMATOCRIT 26 % (33-45); HEMOGLOBIN 8.3 g/dL (11.5-14.8); LYMPHOCYTES # (AUTO) 0.9 K/uL (0.8-4.8); LYMPHOCYTES % (AUTO) 7.2 % (20.0-44.0); MEAN CORPUSCULAR HEMOGLOBIN 31 PG (26.0-33.0); MEAN CORPUSCULAR HGB CONC 33 g/dl (31.0-36.0); MEAN CORPUSCULAR VOLUME 95 fL (82-100); MONOCYTES # (AUTO) 0.5 K/uL (0.1-1.30); MONOCYTES % (AUTO) 4.6 % (2.0-12.0); NEUTROPHILS # (AUTO) 10.4 K/uL (1.8-8.9); NEUTROPHILS % (AUTO) 88.2 % (43.0-81.0); PLATELET COUNT (AUTO) 96 K/uL (150-450); RED CELL DISTRIBUTION WIDTH 15.7 % (11.5-15.0); WHITE BLOOD COUNT (AUTO) 11.8 K/uL (4.3-11.0)
[2023-05-01 06:13] LABS: INR 1.17 (0.91-1.10); PARTIAL THROMBOPLASTIN TIME 27.8 SEC (24.3-34.3); PROTHROMBIN TIME 12.3 SECS (9.2-11.1)
[2023-05-01 06:18] LABS: D-DIMER 22.06 mg/L(FEU (0.17-0.50)
[2023-05-01 06:25] LABS: CALCIUM, SERUM 7.1 mg/dL (8.5-10.1); CREATININE 1.1 mg/dL (0.6-1.3); POTASSIUM 4.4 mmol/L (3.5-5.1)
[2023-05-01] MEDS: HYDROCORTISONE SOD SUCCINATE 100 MG/2 ML VIAL IV SCH ×2 (09:19→16:59)
[2023-05-01] MEDS: PANTOPRAZOLE 40 MG/PACK PACK NG SCH (09:19)
[2023-05-01] MEDS: PROSOURCE / PROSTAT (PYXIS) 30 ML UDC GT SCH (09:24)
[2023-05-01] MEDS: CEFEPIME 2 GM in IV D5W 100 ML IV SCH ×2 (09:24→21:01)
[2023-05-01] MEDS ORDERED: FUROSEMIDE 20 MG/2 ML VIAL IV ONE (09:30)
[2023-05-01] MEDS: IV NS 0.9% 250 ML IV PRN (12:49)
[2023-05-01] MEDS: SOD FERRIC GLUC 125 MG in IV NS 0.9% 100 ML IV SCH (13:55)
[2023-05-01] MEDS: FENTANYL CITRAT IV 2,500 MCG in IV NS 0.9% 200 ML IV PRN (17:00)
[2023-05-01] MEDS: MIDAZOLAM HCL 100 MG in IV NS 0.9% 80 ML IV PRN (17:01)
[2023-05-01] MEDS: GLUCERNA 1.2 1,000 ML BOTTLE NG PRN (18:28)
[2023-05-02] VITALS (24 sets, daily range): BP systolic 109–179; BP diastolic 57–93; TEMP 99.1–102.8; O2SAT 89–99
[2023-05-02] MEDS: ACETAMINOPHEN 650 MG/20.3 ML UDC NG PRN ×3 (04:27→20:10)
[2023-05-02] MEDS ORDERED: FUROSEMIDE 20 MG/2 ML VIAL IV ONE (07:30)
[2023-05-02 07:42] LABS: BASOPHILS % (AUTO) 0.1 % (0.0-2.0); EOSINOPHILS % (AUTO) 0.1 % (0.0-6.0); HEMATOCRIT 31 % (33-45); HEMOGLOBIN 9.9 g/dL (11.5-14.8); LYMPHOCYTES % (AUTO) 5.7 % (20.0-44.0); MEAN CORPUSCULAR HEMOGLOBIN 31 PG (26.0-33.0); MEAN CORPUSCULAR HGB CONC 32 g/dl (31.0-36.0); MEAN CORPUSCULAR VOLUME 96 fL (82-100); MONOCYTES # (AUTO) 0.9 K/uL (0.1-1.30); MONOCYTES % (AUTO) 5.1 % (2.0-12.0); PLATELET COUNT (AUTO) 123 K/uL (150-450); RED BLOOD CELL COUNT(AUTO) 3.21 MIL/uL (4.0-5.2); RED CELL DISTRIBUTION WIDTH 16.2 % (11.5-15.0); WHITE BLOOD COUNT (AUTO) 16.9 K/uL (4.3-11.0)
[2023-05-02 08:00] LABS: INR 1.15 (0.91-1.10); PARTIAL THROMBOPLASTIN TIME 27.1 SEC (24.3-34.3); PROTHROMBIN TIME 12.1 SECS (9.2-11.1)
[2023-05-02 08:05] LABS: D-DIMER 19.13 mg/L(FEU (0.17-0.50)
[2023-05-02] MEDS: HYDROCORTISONE SOD SUCCINATE 100 MG/2 ML VIAL IV SCH ×2 (08:18→16:07)
[2023-05-02] MEDS: CEFEPIME 2 GM in IV D5W 100 ML IV SCH ×2 (08:18→20:43)
[2023-05-02] MEDS: PANTOPRAZOLE 40 MG/PACK PACK NG SCH (08:18)
[2023-05-02] MEDS: PROSOURCE / PROSTAT (PYXIS) 30 ML UDC GT SCH (08:20)
[2023-05-02] MEDS: SOD FERRIC GLUC 125 MG in IV NS 0.9% 100 ML IV SCH (15:08)
[2023-05-02] MEDS: MIDAZOLAM HCL 100 MG in IV NS 0.9% 80 ML IV PRN (17:12)
[2023-05-02] MEDS: FENTANYL CITRAT IV 2,500 MCG in IV NS 0.9% 200 ML IV PRN (17:13)
[2023-05-03] VITALS (24 sets, daily range): BP systolic 108–172; BP diastolic 52–96; TEMP 98.9–100.5; O2SAT 93–99
[2023-05-03] MEDS: IV NS 0.9% 250 ML IV PRN (00:52)
[2023-05-03] MEDS: GLUCERNA 1.2 1,000 ML BOTTLE NG PRN (00:59)
[2023-05-03] MEDS: HYDROCORTISONE SOD SUCCINATE 100 MG/2 ML VIAL IV SCH (08:08)
[2023-05-03] MEDS: PANTOPRAZOLE 40 MG/PACK PACK NG SCH (08:08)
[2023-05-03] MEDS: PROSOURCE / PROSTAT (PYXIS) 30 ML UDC GT SCH (08:09)
[2023-05-03] MEDS: CEFEPIME 2 GM in IV D5W 100 ML IV SCH ×2 (08:09→20:34)
[2023-05-03 09:03] LABS: EOSINOPHILS # (AUTO) 0.1 K/uL (0.0-0.7); EOSINOPHILS % (AUTO) 0.7 % (0.0-6.0); HEMATOCRIT 25 % (33-45); LYMPHOCYTES # (AUTO) 1.1 K/uL (0.8-4.8); LYMPHOCYTES % (AUTO) 11.4 % (20.0-44.0); MEAN CORPUSCULAR HEMOGLOBIN 31 PG (26.0-33.0); MEAN CORPUSCULAR HGB CONC 32 g/dl (31.0-36.0); MEAN CORPUSCULAR VOLUME 96 fL (82-100); MONOCYTES # (AUTO) 0.6 K/uL (0.1-1.30); MONOCYTES % (AUTO) 5.9 % (2.0-12.0); NEUTROPHILS # (AUTO) 8.2 K/uL (1.8-8.9); PLATELET COUNT (AUTO) 93 K/uL (150-450); RED BLOOD CELL COUNT(AUTO) 2.57 MIL/uL (4.0-5.2)
[2023-05-03 09:13] LABS: CALCIUM, SERUM 7.2 mg/dL (8.5-10.1); CREATININE 0.9 mg/dL (0.6-1.3); POTASSIUM 3.8 mmol/L (3.5-5.1)
[2023-05-03 10:42] LABS: BAND % (MANUAL) 1 % (0.0-5.0); EOSINOPHILS % (MANUAL) 1 % (0-4); LYMPHOCYTES % (MANUAL) 12 % (16-48); MONOCYTES % (MANUAL) 6 % (0-11.0); NEUTROPHILS % (MANUAL) 80 (42-76); PLATELET ESTIMATE DECREASED
[2023-05-03 10:43] LABS: ANISOCYTOSIS 1+; OVALOCYTES 1+; TEAR DROP CELLS OCC
[2023-05-03 12:15] LABS: INR 1.19 (0.91-1.10); PARTIAL THROMBOPLASTIN TIME 26.7 SEC (24.3-34.3); PROTHROMBIN TIME 12.5 SECS (9.2-11.1)
[2023-05-03 12:32] LABS: D-DIMER 17.55 mg/L(FEU (0.17-0.50)
[2023-05-03] MEDS: ACETAMINOPHEN 650 MG/20.3 ML UDC NG PRN ×2 (13:07→20:06)
[2023-05-03] MEDS: SOD FERRIC GLUC 125 MG in IV NS 0.9% 100 ML IV SCH (15:33)
[2023-05-04] VITALS (24 sets, daily range): BP systolic 132–170; BP diastolic 74–99; TEMP 99.2–100.7; O2SAT 95–99
[2023-05-04] MEDS: GLUCERNA 1.2 1,000 ML BOTTLE NG PRN (01:47)
[2023-05-04 04:33] LABS: ALBUMIN 1.7 g/dL (3.4-5.0); BILIRUBIN,TOTAL 1.2 mg/dL (0.2-1.0); CALCIUM, SERUM 7.6 mg/dL (8.5-10.1); CREATININE 0.9 mg/dL (0.6-1.3); MAGNESIUM 2.2 mg/dL (1.8-2.4); PHOSPHORUS 2.8 mg/dL (2.5-4.9); POTASSIUM 3.7 mmol/L (3.5-5.1); TOTAL PROTEIN, SERUM 6.1 g/dL (6.4-8.2)
[2023-05-04 04:34] LABS: BASOPHILS % (AUTO) 0.1 % (0.0-2.0); EOSINOPHILS # (AUTO) 0.2 K/uL (0.0-0.7); EOSINOPHILS % (AUTO) 1.2 % (0.0-6.0); HEMATOCRIT 28 % (33-45); HEMOGLOBIN 9.3 g/dL (11.5-14.8); LYMPHOCYTES # (AUTO) 1.2 K/uL (0.8-4.8); LYMPHOCYTES % (AUTO) 9.5 % (20.0-44.0); MEAN CORPUSCULAR HEMOGLOBIN 32 PG (26.0-33.0); MEAN CORPUSCULAR HGB CONC 33 g/dl (31.0-36.0); MEAN CORPUSCULAR VOLUME 96 fL (82-100); MONOCYTES # (AUTO) 0.7 K/uL (0.1-1.30); MONOCYTES % (AUTO) 5.3 % (2.0-12.0); NEUTROPHILS # (AUTO) 10.8 K/uL (1.8-8.9); NEUTROPHILS % (AUTO) 83.9 % (43.0-81.0); PLATELET COUNT (AUTO) 102 K/uL (150-450); RED BLOOD CELL COUNT(AUTO) 2.94 MIL/uL (4.0-5.2); RED CELL DISTRIBUTION WIDTH 15.9 % (11.5-15.0); WHITE BLOOD COUNT (AUTO) 12.9 K/uL (4.3-11.0)
[2023-05-04] MEDS: IV NS 0.9% 250 ML IV PRN (04:38)
[2023-05-04] MEDS: PROSOURCE / PROSTAT (PYXIS) 30 ML UDC GT SCH (08:01)
[2023-05-04] MEDS: PANTOPRAZOLE 40 MG/PACK PACK NG SCH (08:02)
[2023-05-04] MEDS: CEFEPIME 2 GM in IV D5W 100 ML IV SCH ×2 (08:02→20:34)
[2023-05-04] MEDS: ACETAMINOPHEN 650 MG/20.3 ML UDC NG PRN ×4 (09:30→22:09)
[2023-05-05] VITALS (24 sets, daily range): BP systolic 114–165; BP diastolic 73–89; TEMP 100–101.9; O2SAT 95–98
[2023-05-05] MEDS: IV NS 0.9% 250 ML IV PRN (00:47)
[2023-05-05] MEDS: GLUCERNA 1.2 1,000 ML BOTTLE NG PRN (03:15)
[2023-05-05 03:56] LABS: BASOPHILS % (AUTO) 0.3 % (0.0-2.0); EOSINOPHILS # (AUTO) 0.2 K/uL (0.0-0.7); EOSINOPHILS % (AUTO) 1.2 % (0.0-6.0); HEMATOCRIT 30 % (33-45); HEMOGLOBIN 9.6 g/dL (11.5-14.8); LYMPHOCYTES # (AUTO) 0.8 K/uL (0.8-4.8); LYMPHOCYTES % (AUTO) 5.2 % (20.0-44.0); MEAN CORPUSCULAR HEMOGLOBIN 31 PG (26.0-33.0); MEAN CORPUSCULAR HGB CONC 32 g/dl (31.0-36.0); MEAN CORPUSCULAR VOLUME 97 fL (82-100); MONOCYTES % (AUTO) 6.5 % (2.0-12.0); NEUTROPHILS # (AUTO) 13.8 K/uL (1.8-8.9); NEUTROPHILS % (AUTO) 86.8 % (43.0-81.0); PLATELET COUNT (AUTO) 112 K/uL (150-450); RED BLOOD CELL COUNT(AUTO) 3.07 MIL/uL (4.0-5.2); RED CELL DISTRIBUTION WIDTH 16.5 % (11.5-15.0); WHITE BLOOD COUNT (AUTO) 15.9 K/uL (4.3-11.0)
[2023-05-05 04:09] LABS: CALCIUM, SERUM 7.3 mg/dL (8.5-10.1); CREATININE 0.7 mg/dL (0.6-1.3); MAGNESIUM 1.9 mg/dL (1.8-2.4); PHOSPHORUS 3.2 mg/dL (2.5-4.9); POTASSIUM 3.9 mmol/L (3.5-5.1)
[2023-05-05 04:29] LABS: INR 1.15 (0.91-1.10); PARTIAL THROMBOPLASTIN TIME 27.4 SEC (24.3-34.3); PROTHROMBIN TIME 12.1 SECS (9.2-11.1)
[2023-05-05 04:30] LABS: D-DIMER 12.63 mg/L(FEU (0.17-0.50)
[2023-05-05] MEDS: PANTOPRAZOLE 40 MG/PACK PACK NG SCH (09:15)
[2023-05-05] MEDS: PROSOURCE / PROSTAT (PYXIS) 30 ML UDC GT SCH (09:16)
[2023-05-05] MEDS: CEFEPIME 2 GM in IV D5W 100 ML IV SCH (09:16)
[2023-05-05] MEDS: ACETAMINOPHEN 650 MG/20.3 ML UDC NG PRN ×2 (12:08→21:13)
[2023-05-05 12:10] LABS: ANISOCYTOSIS 1+; LYMPHOCYTES % (MANUAL) 5 % (16-48); MONOCYTES % (MANUAL) 7 % (0-11.0); NEUTROPHILS % (MANUAL) 88 (42-76); PLATELET ESTIMATE DECREASED
[2023-05-05] MEDS: MEROPENEM 1 G in IV NS 0.9% 100 ML IV SCH (18:58)
[2023-05-05] MEDS ORDERED: MEROPENEM 1 G in IV NS 0.9% 100 ML IV SCH (21:00)
[2023-05-06] VITALS (25 sets, daily range): BP systolic 110–171; BP diastolic 63–90; TEMP 98.4–101.2; O2SAT 92–98
[2023-05-06] MEDS: IV NS 0.9% 250 ML IV PRN (00:52)
[2023-05-06 04:35] LABS: EOSINOPHILS # (AUTO) 0.2 K/uL (0.0-0.7); EOSINOPHILS % (AUTO) 1.6 % (0.0-6.0); HEMATOCRIT 27 % (33-45); HEMOGLOBIN 8.5 g/dL (11.5-14.8); LYMPHOCYTES # (AUTO) 0.4 K/uL (0.8-4.8); LYMPHOCYTES % (AUTO) 3.4 % (20.0-44.0); MEAN CORPUSCULAR HEMOGLOBIN 31 PG (26.0-33.0); MEAN CORPUSCULAR HGB CONC 32 g/dl (31.0-36.0); MEAN CORPUSCULAR VOLUME 98 fL (82-100); MONOCYTES # (AUTO) 0.6 K/uL (0.1-1.30); MONOCYTES % (AUTO) 5.1 % (2.0-12.0); NEUTROPHILS % (AUTO) 89.9 % (43.0-81.0); PLATELET COUNT (AUTO) 114 K/uL (150-450); RED BLOOD CELL COUNT(AUTO) 2.74 MIL/uL (4.0-5.2); RED CELL DISTRIBUTION WIDTH 17.5 % (11.5-15.0); WHITE BLOOD COUNT (AUTO) 12.3 K/uL (4.3-11.0)
[2023-05-06 04:48] LABS: ALBUMIN 1.5 g/dL (3.4-5.0); BILIRUBIN,TOTAL 1.4 mg/dL (0.2-1.0); CALCIUM, SERUM 7.4 mg/dL (8.5-10.1); CREATININE 0.8 mg/dL (0.6-1.3); MAGNESIUM 2.1 mg/dL (1.8-2.4); PHOSPHORUS 3.2 mg/dL (2.5-4.9); POTASSIUM 3.7 mmol/L (3.5-5.1); TOTAL PROTEIN, SERUM 5.7 g/dL (6.4-8.2)
[2023-05-06] MEDS: MEROPENEM 1 G in IV NS 0.9% 100 ML IV SCH ×3 (05:07→20:30)
[2023-05-06] MEDS: ACETAMINOPHEN 650 MG/20.3 ML UDC NG PRN ×2 (05:07→13:30)
[2023-05-06] MEDS: PANTOPRAZOLE 40 MG/PACK PACK NG SCH (08:06)
[2023-05-06] MEDS: PROSOURCE / PROSTAT (PYXIS) 30 ML UDC GT SCH (08:07)
[2023-05-06] MEDS: METOCLOPRAMIDE HCL 10 MG/2 ML VIAL IV SCH ×2 (14:51→19:32)
[2023-05-07] VITALS (26 sets, daily range): BP systolic 117–144; BP diastolic 64–88; TEMP 98.5–99.1; O2SAT 97–100
[2023-05-07] MEDS: METOCLOPRAMIDE HCL 10 MG/2 ML VIAL IV SCH ×4 (00:36→19:41)
[2023-05-07] MEDS: MEROPENEM 1 G in IV NS 0.9% 100 ML IV SCH ×3 (04:22→20:47)
[2023-05-07 05:42] LABS: BASOPHILS % (AUTO) 0.3 % (0.0-2.0); EOSINOPHILS # (AUTO) 0.2 K/uL (0.0-0.7); EOSINOPHILS % (AUTO) 1.4 % (0.0-6.0); HEMATOCRIT 26 % (33-45); HEMOGLOBIN 8.5 g/dL (11.5-14.8); LYMPHOCYTES # (AUTO) 1.1 K/uL (0.8-4.8); MEAN CORPUSCULAR HEMOGLOBIN 32 PG (26.0-33.0); MEAN CORPUSCULAR HGB CONC 33 g/dl (31.0-36.0); MEAN CORPUSCULAR VOLUME 97 fL (82-100); MONOCYTES # (AUTO) 1.2 K/uL (0.1-1.30); MONOCYTES % (AUTO) 9.8 % (2.0-12.0); NEUTROPHILS # (AUTO) 9.8 K/uL (1.8-8.9); NEUTROPHILS % (AUTO) 79.5 % (43.0-81.0); PLATELET COUNT (AUTO) 135 K/uL (150-450); RED CELL DISTRIBUTION WIDTH 18.6 % (11.5-15.0); WHITE BLOOD COUNT (AUTO) 12.4 K/uL (4.3-11.0)
[2023-05-07 05:44] LABS: INR 1.14 (0.91-1.10); PARTIAL THROMBOPLASTIN TIME 29.8 SEC (24.3-34.3)
[2023-05-07 05:54] LABS: ALBUMIN 1.5 g/dL (3.4-5.0); BILIRUBIN,TOTAL 1.3 mg/dL (0.2-1.0); CALCIUM, SERUM 7.4 mg/dL (8.5-10.1); CREATININE 0.8 mg/dL (0.6-1.3); D-DIMER 9.83 mg/L(FEU (0.17-0.50); MAGNESIUM 2.1 mg/dL (1.8-2.4); PHOSPHORUS 2.9 mg/dL (2.5-4.9); POTASSIUM 3.7 mmol/L (3.5-5.1); TOTAL PROTEIN, SERUM 5.8 g/dL (6.4-8.2)
[2023-05-07 07:00] LABS: ABG BASE EXCESS 1.7 mmol/L; ABG OXYGEN SATURATION 96.6 % (92.0-98.5); ABG PCO2 35.2 mmHg (35.0-45.0); ABG PH 7.472 (7.350-7.450); ABG PO2 94.7 mmHg (75.0-100.0); ABG TOTAL HEMOGLOBIN 10.2 G/dL (12.0-16.0); AaDO2 77.8 mmHg; COHb 0.3 % (0.5-1.5); MetHb 0.4 % (0.0-1.5); O2Hb 95.9 % (94.0-97.0); SITE, ABG Left Radial; VENT MODE, BG CPAP PS 15 +5 30%
[2023-05-07] MEDS: PANTOPRAZOLE 40 MG/PACK PACK NG SCH (08:25)
[2023-05-07] MEDS: PROSOURCE / PROSTAT (PYXIS) 30 ML UDC GT SCH (08:25)
[2023-05-07] MEDS ORDERED: DC PROPOFOL WHEN EXTUBATED XX PRN (09:00)
[2023-05-07] MEDS: IV NS 0.9% 250 ML IV PRN (21:00)
[2023-05-07] MEDS: ACETAMINOPHEN 325 MG TABLET PO PRN (22:22)
[2023-05-08] VITALS (17 sets, daily range): BP systolic 107–141; BP diastolic 51–82; TEMP 98.3–99.9; O2SAT 94–98
[2023-05-08] MEDS: METOCLOPRAMIDE HCL 10 MG/2 ML VIAL IV SCH ×4 (01:09→20:08)
[2023-05-08 05:00] LABS: BASOPHILS % (AUTO) 0.3 % (0.0-2.0); EOSINOPHILS # (AUTO) 0.2 K/uL (0.0-0.7); HEMATOCRIT 27 % (33-45); HEMOGLOBIN 8.7 g/dL (11.5-14.8); LYMPHOCYTES # (AUTO) 1.2 K/uL (0.8-4.8); LYMPHOCYTES % (AUTO) 10.2 % (20.0-44.0); MEAN CORPUSCULAR HEMOGLOBIN 31 PG (26.0-33.0); MEAN CORPUSCULAR HGB CONC 32 g/dl (31.0-36.0); MEAN CORPUSCULAR VOLUME 97 fL (82-100); MONOCYTES # (AUTO) 1.2 K/uL (0.1-1.30); MONOCYTES % (AUTO) 10.2 % (2.0-12.0); NEUTROPHILS # (AUTO) 9.2 K/uL (1.8-8.9); NEUTROPHILS % (AUTO) 77.3 % (43.0-81.0); PLATELET COUNT (AUTO) 165 K/uL (150-450); RED CELL DISTRIBUTION WIDTH 19.3 % (11.5-15.0); WHITE BLOOD COUNT (AUTO) 11.9 K/uL (4.3-11.0)
[2023-05-08] MEDS: MEROPENEM 1 G in IV NS 0.9% 100 ML IV SCH ×3 (05:07→20:08)
[2023-05-08 05:29] LABS: ALBUMIN 1.6 g/dL (3.4-5.0); BILIRUBIN,TOTAL 1.5 mg/dL (0.2-1.0); CALCIUM, SERUM 7.4 mg/dL (8.5-10.1); CREATININE 0.7 mg/dL (0.6-1.3); MAGNESIUM 2.1 mg/dL (1.8-2.4); PHOSPHORUS 2.8 mg/dL (2.5-4.9); POTASSIUM 3.3 mmol/L (3.5-5.1)
[2023-05-08] MEDS: POTASSIUM CHLORIDE 20 MEQ TAB.PRT.SR PO SCH ×3 (08:01→10:23)
[2023-05-08] MEDS: FUROSEMIDE 40 MG/4 ML VIAL IV SCH ×3 (08:02→15:58)
[2023-05-08] MEDS: PROSOURCE / PROSTAT (PYXIS) 30 ML UDC GT SCH (08:03)
[2023-05-08] MEDS: PANTOPRAZOLE 40 MG/PACK PACK NG SCH (08:35)
[2023-05-08] MEDS: ACETAMINOPHEN 325 MG TABLET PO PRN (15:58)
[2023-05-09] VITALS: BP 110/66; TEMP 98.8; O2SAT 96
[2023-05-09] MEDS: METOCLOPRAMIDE HCL 10 MG/2 ML VIAL IV SCH ×4 (01:08→19:55)
[2023-05-09 04:00] VITALS: BP 126/76; TEMP 99.6; O2SAT 95
[2023-05-09] MEDS: MEROPENEM 1 G in IV NS 0.9% 100 ML IV SCH ×3 (04:26→20:12)
[2023-05-09 06:08] LABS: BASOPHILS # (AUTO) 0.1 K/uL (0.0-0.2); BASOPHILS % (AUTO) 0.7 % (0.0-2.0); EOSINOPHILS # (AUTO) 0.2 K/uL (0.0-0.7); EOSINOPHILS % (AUTO) 1.8 % (0.0-6.0); HEMATOCRIT 28 % (33-45); HEMOGLOBIN 9.1 g/dL (11.5-14.8); LYMPHOCYTES # (AUTO) 1.2 K/uL (0.8-4.8); LYMPHOCYTES % (AUTO) 10.7 % (20.0-44.0); MEAN CORPUSCULAR HEMOGLOBIN 31 PG (26.0-33.0); MEAN CORPUSCULAR HGB CONC 32 g/dl (31.0-36.0); MEAN CORPUSCULAR VOLUME 97 fL (82-100); MONOCYTES # (AUTO) 1.2 K/uL (0.1-1.30); MONOCYTES % (AUTO) 10.4 % (2.0-12.0); NEUTROPHILS # (AUTO) 8.9 K/uL (1.8-8.9); NEUTROPHILS % (AUTO) 76.4 % (43.0-81.0); PLATELET COUNT (AUTO) 110 K/uL (150-450); RED BLOOD CELL COUNT(AUTO) 2.91 MIL/uL (4.0-5.2); RED CELL DISTRIBUTION WIDTH 19.1 % (11.5-15.0); WHITE BLOOD COUNT (AUTO) 11.6 K/uL (4.3-11.0)
[2023-05-09 06:33] LABS: ALBUMIN 1.6 g/dL (3.4-5.0); BILIRUBIN,TOTAL 1.3 mg/dL (0.2-1.0); CALCIUM, SERUM 7.5 mg/dL (8.5-10.1); CREATININE 0.7 mg/dL (0.6-1.3); MAGNESIUM 2.2 mg/dL (1.8-2.4); PHOSPHORUS 3.2 mg/dL (2.5-4.9); POTASSIUM 3.8 mmol/L (3.5-5.1); TOTAL PROTEIN, SERUM 6.1 g/dL (6.4-8.2)
[2023-05-09 08:00] VITALS: BP 133/73; TEMP 99.1; O2SAT 99
[2023-05-09] MEDS: PROSOURCE / PROSTAT (PYXIS) 30 ML UDC GT SCH (08:17)
[2023-05-09] MEDS: PANTOPRAZOLE 40 MG/PACK PACK NG SCH (09:37)
[2023-05-09 12:00] VITALS: BP 125/68; O2SAT 99
[2023-05-09 16:00] VITALS: BP 118/67; TEMP 99.1; O2SAT 99
[2023-05-09] MEDS ORDERED: POTASSIUM CHLORIDE 20 MEQ POWDER PACKET PO ONE (19:30)
[2023-05-09 20:00] VITALS: BP 117/71; TEMP 99.5; O2SAT 100
[2023-05-10] VITALS: BP 114/68; TEMP 99.1; O2SAT 99
[2023-05-10] MEDS: METOCLOPRAMIDE HCL 10 MG/2 ML VIAL IV SCH ×4 (00:34→20:28)
[2023-05-10 04:00] VITALS: BP 118/73; TEMP 98.8; O2SAT 100
[2023-05-10] MEDS: MEROPENEM 1 G in IV NS 0.9% 100 ML IV SCH ×3 (04:32→20:30)
[2023-05-10 08:00] VITALS: BP 106/58; TEMP 99.3; O2SAT 98
[2023-05-10 08:31] LABS: INR 1.3 (0.91-1.10); PARTIAL THROMBOPLASTIN TIME 25.3 SEC (24.3-34.3); PROTHROMBIN TIME 13.5 SECS (9.2-11.1)
[2023-05-10 08:32] LABS: BILIRUBIN,TOTAL 1.3 mg/dL (0.2-1.0); CALCIUM, SERUM 7.1 mg/dL (8.5-10.1); CREATININE 0.4 mg/dL (0.6-1.3); MAGNESIUM 2.2 mg/dL (1.8-2.4); PHOSPHORUS 3.4 mg/dL (2.5-4.9); POTASSIUM 4.2 mmol/L (3.5-5.1); TOTAL PROTEIN, SERUM 5.3 g/dL (6.4-8.2)
[2023-05-10 08:39] LABS: ALBUMIN 1.1 g/dL (3.4-5.0)
[2023-05-10] MEDS: PANTOPRAZOLE 40 MG/PACK PACK NG SCH (08:53)
[2023-05-10] MEDS: PROSOURCE / PROSTAT (PYXIS) 30 ML UDC GT SCH (08:53)
[2023-05-10 09:55] LABS: BASOPHILS % (AUTO) 0.4 % (0.0-2.0); EOSINOPHILS # (AUTO) 0.2 K/uL (0.0-0.7); EOSINOPHILS % (AUTO) 1.8 % (0.0-6.0); HEMATOCRIT 30 % (33-45); HEMOGLOBIN 9.6 g/dL (11.5-14.8); LYMPHOCYTES # (AUTO) 1.2 K/uL (0.8-4.8); MEAN CORPUSCULAR HEMOGLOBIN 31 PG (26.0-33.0); MEAN CORPUSCULAR HGB CONC 32 g/dl (31.0-36.0); MEAN CORPUSCULAR VOLUME 97 fL (82-100); MONOCYTES # (AUTO) 0.7 K/uL (0.1-1.30); MONOCYTES % (AUTO) 6.4 % (2.0-12.0); NEUTROPHILS # (AUTO) 8.7 K/uL (1.8-8.9); NEUTROPHILS % (AUTO) 80.4 % (43.0-81.0); PLATELET COUNT (AUTO) 183 K/uL (150-450); RED BLOOD CELL COUNT(AUTO) 3.08 MIL/uL (4.0-5.2); RED CELL DISTRIBUTION WIDTH 19.2 % (11.5-15.0); WHITE BLOOD COUNT (AUTO) 10.8 K/uL (4.3-11.0)
[2023-05-10 10:43] LABS: D-DIMER 24.83 mg/L(FEU (0.17-0.50)
[2023-05-10 12:00] VITALS: BP 108/60; TEMP 99.1; O2SAT 98
[2023-05-10 16:00] VITALS: BP 113/68; TEMP 99.8; O2SAT 98
[2023-05-10 20:00] VITALS: BP 120/60; TEMP 98.2; O2SAT 100
[2023-05-11] VITALS: BP 115/58; TEMP 98.2; O2SAT 100
[2023-05-11] MEDS: METOCLOPRAMIDE HCL 10 MG/2 ML VIAL IV SCH ×4 (01:30→20:05)
[2023-05-11 04:00] VITALS: BP 120/60; TEMP 98; O2SAT 100
[2023-05-11] MEDS: MEROPENEM 1 G in IV NS 0.9% 100 ML IV SCH ×3 (05:36→20:59)
[2023-05-11 07:26] LABS: BASOPHILS # (AUTO) 0.1 K/uL (0.0-0.2); BASOPHILS % (AUTO) 0.5 % (0.0-2.0); EOSINOPHILS # (AUTO) 0.2 K/uL (0.0-0.7); EOSINOPHILS % (AUTO) 2.2 % (0.0-6.0); HEMATOCRIT 28 % (33-45); HEMOGLOBIN 9.1 g/dL (11.5-14.8); LYMPHOCYTES # (AUTO) 1.1 K/uL (0.8-4.8); LYMPHOCYTES % (AUTO) 11.5 % (20.0-44.0); MEAN CORPUSCULAR HEMOGLOBIN 32 PG (26.0-33.0); MEAN CORPUSCULAR HGB CONC 33 g/dl (31.0-36.0); MEAN CORPUSCULAR VOLUME 95 fL (82-100); MONOCYTES # (AUTO) 1.1 K/uL (0.1-1.30); MONOCYTES % (AUTO) 11.3 % (2.0-12.0); NEUTROPHILS # (AUTO) 7.3 K/uL (1.8-8.9); NEUTROPHILS % (AUTO) 74.5 % (43.0-81.0); RED BLOOD CELL COUNT(AUTO) 2.89 MIL/uL (4.0-5.2); RED CELL DISTRIBUTION WIDTH 17.5 % (11.5-15.0); WHITE BLOOD COUNT (AUTO) 9.8 K/uL (4.3-11.0)
[2023-05-11 07:31] LABS: PLATELET COUNT (AUTO) 185 K/uL (150-450)
[2023-05-11 07:44] LABS: INR 1.23 (0.91-1.10); PARTIAL THROMBOPLASTIN TIME 32.5 SEC (24.3-34.3); PROTHROMBIN TIME 12.9 SECS (9.2-11.1)
[2023-05-11 07:45] LABS: D-DIMER 30.29 mg/L(FEU (0.17-0.50)
[2023-05-11 08:00] VITALS: BP 108/64; TEMP 99; O2SAT 100
[2023-05-11] MEDS: PANTOPRAZOLE 40 MG/PACK PACK NG SCH (08:50)
[2023-05-11] MEDS: PROSOURCE / PROSTAT (PYXIS) 30 ML UDC GT SCH (08:50)
[2023-05-11] MEDS: FUROSEMIDE 40 MG/4 ML VIAL IV SCH (09:39)
[2023-05-11 12:00] VITALS: BP 101/69; TEMP 99.3; O2SAT 97
[2023-05-11 16:00] VITALS: BP 111/70; TEMP 99.1; O2SAT 96
[2023-05-11 20:00] VITALS: BP 127/69; TEMP 100.2; O2SAT 96
[2023-05-11] MEDS: ACETAMINOPHEN 325 MG TABLET PO PRN (21:37)
[2023-05-12] VITALS: BP 104/66; TEMP 98.6; O2SAT 96
[2023-05-12] MEDS: METOCLOPRAMIDE HCL 10 MG/2 ML VIAL IV SCH ×4 (02:24→18:45)
[2023-05-12 04:00] VITALS: BP 132/60; TEMP 98.2; O2SAT 96
[2023-05-12] MEDS: MEROPENEM 1 G in IV NS 0.9% 100 ML IV SCH ×3 (04:43→20:16)
[2023-05-12 08:00] VITALS: BP 108/59; TEMP 97.6; O2SAT 95
[2023-05-12] MEDS: PROSOURCE / PROSTAT (PYXIS) 30 ML UDC GT SCH (08:00)
[2023-05-12] MEDS: FUROSEMIDE 40 MG/4 ML VIAL IV SCH (08:56)
[2023-05-12 12:00] VITALS: BP 110/70; TEMP 98.8; O2SAT 96
[2023-05-12 13:03] LABS: BASOPHILS % (AUTO) 0.5 % (0.0-2.0); EOSINOPHILS # (AUTO) 0.2 K/uL (0.0-0.7); EOSINOPHILS % (AUTO) 2.8 % (0.0-6.0); HEMATOCRIT 28 % (33-45); HEMOGLOBIN 9.1 g/dL (11.5-14.8); LYMPHOCYTES # (AUTO) 1.1 K/uL (0.8-4.8); LYMPHOCYTES % (AUTO) 12.6 % (20.0-44.0); MEAN CORPUSCULAR HEMOGLOBIN 31 PG (26.0-33.0); MEAN CORPUSCULAR HGB CONC 33 g/dl (31.0-36.0); MEAN CORPUSCULAR VOLUME 95 fL (82-100); MONOCYTES # (AUTO) 0.9 K/uL (0.1-1.30); MONOCYTES % (AUTO) 11.3 % (2.0-12.0); NEUTROPHILS # (AUTO) 6.1 K/uL (1.8-8.9); NEUTROPHILS % (AUTO) 72.8 % (43.0-81.0); PLATELET COUNT (AUTO) 168 K/uL (150-450); RED BLOOD CELL COUNT(AUTO) 2.91 MIL/uL (4.0-5.2); RED CELL DISTRIBUTION WIDTH 17.5 % (11.5-15.0); WHITE BLOOD COUNT (AUTO) 8.4 K/uL (4.3-11.0)
[2023-05-12] MEDS: PANTOPRAZOLE 40 MG/PACK PACK NG SCH (13:41)
[2023-05-12 16:00] VITALS: BP 105/67; TEMP 98.5; O2SAT 95
[2023-05-12 22:30] VITALS: BP 106/69; TEMP 99.3; O2SAT 98
[2023-05-12] MEDS: ACETAMINOPHEN 325 MG TABLET PO PRN (22:45)
[2023-05-13] MEDS: METOCLOPRAMIDE HCL 10 MG/2 ML VIAL IV SCH ×4 (00:45→21:11)
[2023-05-13 01:33] VITALS: BP 102/59; TEMP 98.2; O2SAT 98
[2023-05-13] MEDS: MEROPENEM 1 G in IV NS 0.9% 100 ML IV SCH ×3 (04:12→21:12)
[2023-05-13 06:55] VITALS: BP 102/59; TEMP 98.2; O2SAT 98
[2023-05-13] MEDS: PROSOURCE / PROSTAT (PYXIS) 30 ML UDC GT SCH (07:58)
[2023-05-13 08:00] VITALS: BP 103/71; TEMP 98.6; O2SAT 98
[2023-05-13] MEDS: PANTOPRAZOLE 40 MG/PACK PACK NG SCH (08:26)
[2023-05-13] MEDS: FUROSEMIDE 40 MG/4 ML VIAL IV SCH (08:26)
[2023-05-13 12:00] VITALS: BP 110/71; TEMP 98; O2SAT 98
[2023-05-13 12:06] LABS: BASOPHILS # (AUTO) 0.1 K/uL (0.0-0.2); BASOPHILS % (AUTO) 0.9 % (0.0-2.0); EOSINOPHILS # (AUTO) 0.4 K/uL (0.0-0.7); EOSINOPHILS % (AUTO) 4.8 % (0.0-6.0); HEMATOCRIT 29 % (33-45); HEMOGLOBIN 9.4 g/dL (11.5-14.8); LYMPHOCYTES # (AUTO) 1.2 K/uL (0.8-4.8); LYMPHOCYTES % (AUTO) 14.4 % (20.0-44.0); MEAN CORPUSCULAR HEMOGLOBIN 31 PG (26.0-33.0); MEAN CORPUSCULAR HGB CONC 33 g/dl (31.0-36.0); MEAN CORPUSCULAR VOLUME 94 fL (82-100); MONOCYTES % (AUTO) 12.7 % (2.0-12.0); NEUTROPHILS # (AUTO) 5.5 K/uL (1.8-8.9); NEUTROPHILS % (AUTO) 67.2 % (43.0-81.0); PLATELET COUNT (AUTO) 165 K/uL (150-450); RED BLOOD CELL COUNT(AUTO) 3.08 MIL/uL (4.0-5.2); RED CELL DISTRIBUTION WIDTH 17.4 % (11.5-15.0); WHITE BLOOD COUNT (AUTO) 8.1 K/uL (4.3-11.0)
[2023-05-13 12:23] LABS: INR 1.27 (0.91-1.10); PARTIAL THROMBOPLASTIN TIME 35.2 SEC (24.3-34.3); PROTHROMBIN TIME 13.3 SECS (9.2-11.1)
[2023-05-13] MEDS ORDERED: GADOTERATE MEGLUMINE 10 MMOL/20 ML VIAL IV ONE (15:08)
[2023-05-13 16:00] VITALS: BP 120/73; TEMP 98; O2SAT 98
[2023-05-13 20:00] VITALS: BP 129/74; TEMP 98.4; O2SAT 98
[2023-05-13] MEDS: POLYETHYLENE GLYCOL 3350 17 GM POWD.PACK PO SCH (21:12)
[2023-05-14] VITALS: BP 126/81; TEMP 98.1; O2SAT 97
[2023-05-14 04:00] VITALS: BP 119/84; TEMP 97.6; O2SAT 99
[2023-05-14] MEDS: MEROPENEM 1 G in IV NS 0.9% 100 ML IV SCH ×3 (04:10→22:06)
[2023-05-14] MEDS: METOCLOPRAMIDE HCL 10 MG/2 ML VIAL IV SCH ×4 (04:11→20:50)
[2023-05-14 06:19] LABS: BASOPHILS # (AUTO) 0.1 K/uL (0.0-0.2); BASOPHILS % (AUTO) 0.8 % (0.0-2.0); EOSINOPHILS # (AUTO) 0.4 K/uL (0.0-0.7); EOSINOPHILS % (AUTO) 4.8 % (0.0-6.0); HEMATOCRIT 28 % (33-45); HEMOGLOBIN 9.4 g/dL (11.5-14.8); LYMPHOCYTES # (AUTO) 1.1 K/uL (0.8-4.8); LYMPHOCYTES % (AUTO) 14.8 % (20.0-44.0); MEAN CORPUSCULAR HEMOGLOBIN 31 PG (26.0-33.0); MEAN CORPUSCULAR HGB CONC 33 g/dl (31.0-36.0); MEAN CORPUSCULAR VOLUME 93 fL (82-100); MONOCYTES # (AUTO) 0.8 K/uL (0.1-1.30); MONOCYTES % (AUTO) 10.8 % (2.0-12.0); NEUTROPHILS % (AUTO) 68.8 % (43.0-81.0); PLATELET COUNT (AUTO) 141 K/uL (150-450); RED BLOOD CELL COUNT(AUTO) 3.04 MIL/uL (4.0-5.2); RED CELL DISTRIBUTION WIDTH 16.9 % (11.5-15.0); WHITE BLOOD COUNT (AUTO) 7.2 K/uL (4.3-11.0)
[2023-05-14 08:00] VITALS: BP 105/65; TEMP 98
[2023-05-14] MEDS: PROSOURCE / PROSTAT (PYXIS) 30 ML UDC GT SCH (08:24)
[2023-05-14] MEDS: FUROSEMIDE 40 MG/4 ML VIAL IV SCH (08:25)
[2023-05-14] MEDS: PANTOPRAZOLE 40 MG/PACK PACK NG SCH (08:25)
[2023-05-14 12:00] VITALS: BP 105/57; TEMP 98.3; O2SAT 98
[2023-05-14 16:00] VITALS: BP 105/53; TEMP 98; O2SAT 99
[2023-05-14] MEDS: OFLOXACIN 0.3% OPHTH 5 ML BOTTLE EACHEYE SCH ×2 (16:38→20:54)
[2023-05-14] MEDS ORDERED: TOBRAMYCIN/DEXAMETH OPHTH DORPS 2.5 ML BOTTLE EACHEYE SCH (17:00)
[2023-05-14 20:00] VITALS: BP 113/73; TEMP 99.5; O2SAT 98
[2023-05-14] MEDS: POLYETHYLENE GLYCOL 3350 17 GM POWD.PACK PO SCH (22:17)
[2023-05-15] VITALS: BP 103/56; TEMP 98.8; O2SAT 99
[2023-05-15] MEDS: OFLOXACIN 0.3% OPHTH 5 ML BOTTLE EACHEYE SCH ×6 (00:52→20:39)
[2023-05-15] MEDS: METOCLOPRAMIDE HCL 10 MG/2 ML VIAL IV SCH ×4 (01:43→20:39)
[2023-05-15 04:00] VITALS: BP 100/72; TEMP 98.8; O2SAT 99
[2023-05-15] MEDS: MEROPENEM 1 G in IV NS 0.9% 100 ML IV SCH ×3 (04:54→20:39)
[2023-05-15] MEDS: ENOXAPARIN SODIUM 40 MG/0.4 ML DISP.SYRIN SQ SCH (07:03)
[2023-05-15 08:00] VITALS: BP 107/67; TEMP 98.6; O2SAT 98
[2023-05-15] MEDS: FUROSEMIDE 40 MG/4 ML VIAL IV SCH (08:30)
[2023-05-15] MEDS: PANTOPRAZOLE 40 MG/PACK PACK NG SCH (08:30)
[2023-05-15] MEDS: PROSOURCE / PROSTAT (PYXIS) 30 ML UDC GT SCH (08:30)
[2023-05-15 12:00] VITALS: BP 115/73; TEMP 98.6; O2SAT 98
[2023-05-15 13:43] LABS: APPEARANCE,URINE CLEAR (CLEAR); BILIRUBIN,URINE NEGATIVE (NEGATIVE); BLOOD, URINE 1+ Ery/uL (NEGATIVE); COLOR,URINE YELLOW (YELLOW); KETONES,URINE NEGATIVE (NEGATIVE); LEUKOCYTE ESTERASE ,URINE 2+ (NEGATIVE); NITRITE, URINE NEGATIVE (NEGATIVE); PROTEIN,URINE TRACE mg/dl (NEGATIVE); UGLUCOSE NEGATIVE (NEGATIVE)
[2023-05-15 13:58] LABS: ADD URINE CULTURE YES; BACTERIA,URINE Few /HPF (None Seen); SQUAMOUS EPITHELIAL CELL,UR Few /HPF (None Seen)
[2023-05-15 14:00] LABS: CREATININE, URINE 32.6 MG/DL (30.0-125.0); URINE TOTAL PROTEIN 51.1 mg/dL (0-11.9)
[2023-05-15 15:45] LABS: EOSINOPHIL,URINE None Seen
[2023-05-15 16:00] VITALS: BP 109/68; TEMP 98.8; O2SAT 98
[2023-05-15 20:00] VITALS: BP 107/75; TEMP 99.5; O2SAT 98
[2023-05-15] MEDS: POLYETHYLENE GLYCOL 3350 17 GM POWD.PACK PO SCH (20:39)
[2023-05-16] VITALS: BP 114/66; TEMP 99.3; O2SAT 95
[2023-05-16] MEDS: OFLOXACIN 0.3% OPHTH 5 ML BOTTLE EACHEYE SCH ×6 (01:00→20:09)
[2023-05-16] MEDS: METOCLOPRAMIDE HCL 10 MG/2 ML VIAL IV SCH ×4 (01:40→20:09)
[2023-05-16 04:00] VITALS: BP 100/64; TEMP 98.6; O2SAT 97
[2023-05-16] MEDS: MEROPENEM 1 G in IV NS 0.9% 100 ML IV SCH ×3 (04:18→20:09)
[2023-05-16 05:51] LABS: BASOPHILS # (AUTO) 0.1 K/uL (0.0-0.2); BASOPHILS % (AUTO) 0.9 % (0.0-2.0); EOSINOPHILS # (AUTO) 0.4 K/uL (0.0-0.7); EOSINOPHILS % (AUTO) 6.9 % (0.0-6.0); HEMATOCRIT 28 % (33-45); HEMOGLOBIN 9.5 g/dL (11.5-14.8); LYMPHOCYTES # (AUTO) 1.2 K/uL (0.8-4.8); LYMPHOCYTES % (AUTO) 19.2 % (20.0-44.0); MEAN CORPUSCULAR HEMOGLOBIN 31 PG (26.0-33.0); MEAN CORPUSCULAR HGB CONC 34 g/dl (31.0-36.0); MEAN CORPUSCULAR VOLUME 92 fL (82-100); MONOCYTES # (AUTO) 0.8 K/uL (0.1-1.30); MONOCYTES % (AUTO) 12.8 % (2.0-12.0); NEUTROPHILS # (AUTO) 3.6 K/uL (1.8-8.9); NEUTROPHILS % (AUTO) 60.2 % (43.0-81.0); PLATELET COUNT (AUTO) 106 K/uL (150-450); RED BLOOD CELL COUNT(AUTO) 3.09 MIL/uL (4.0-5.2); RED CELL DISTRIBUTION WIDTH 17.2 % (11.5-15.0)
[2023-05-16 06:02] LABS: INR 1.27 (0.91-1.10); PARTIAL THROMBOPLASTIN TIME 33.4 SEC (24.3-34.3); PROTHROMBIN TIME 13.3 SECS (9.2-11.1)
[2023-05-16 06:11] LABS: ALBUMIN 1.9 g/dL (3.4-5.0); BILIRUBIN,TOTAL 1.2 mg/dL (0.2-1.0); CALCIUM, SERUM 8.2 mg/dL (8.5-10.1); CREATININE 0.5 mg/dL (0.6-1.3); MAGNESIUM 2.2 mg/dL (1.8-2.4); PHOSPHORUS 3.6 mg/dL (2.5-4.9); POTASSIUM 3.3 mmol/L (3.5-5.1); TOTAL PROTEIN, SERUM 6.9 g/dL (6.4-8.2)
[2023-05-16] MEDS: ENOXAPARIN SODIUM 40 MG/0.4 ML DISP.SYRIN SQ SCH (06:14)
[2023-05-16 08:00] VITALS: BP 102/65; TEMP 98.2; O2SAT 97
[2023-05-16] MEDS: POTASSIUM CHLORIDE 20 MEQ TAB.PRT.SR PO SCH ×2 (08:51→09:36)
[2023-05-16] MEDS: PANTOPRAZOLE 40 MG/PACK PACK NG SCH (08:51)
[2023-05-16] MEDS: PROSOURCE / PROSTAT (PYXIS) 30 ML UDC GT SCH (08:53)
[2023-05-16 12:00] VITALS: BP 111/69; TEMP 98.8; O2SAT 97
[2023-05-16] MEDS ORDERED: BISACODYL SUPP (10 MG) 10 MG/SUPP.RECT SUPP.RECT RC PRN (15:00)
[2023-05-16] MEDS: POLYETHYLENE GLYCOL 3350 17 GM POWD.PACK PO SCH ×2 (15:21→21:52)
[2023-05-16 16:00] VITALS: BP 116/78; TEMP 99; O2SAT 97
[2023-05-16 20:00] VITALS: BP 116/71; TEMP 99.5; O2SAT 97
[2023-05-17] MEDS: OFLOXACIN 0.3% OPHTH 5 ML BOTTLE EACHEYE SCH ×6 (00:30→20:52)
[2023-05-17] MEDS: METOCLOPRAMIDE HCL 10 MG/2 ML VIAL IV SCH ×4 (00:31→20:02)
[2023-05-17 04:00] VITALS: BP 120/74; TEMP 99; O2SAT 98
[2023-05-17] MEDS: MEROPENEM 1 G in IV NS 0.9% 100 ML IV SCH ×3 (04:00→20:07)
[2023-05-17] MEDS: ENOXAPARIN SODIUM 40 MG/0.4 ML DISP.SYRIN SQ SCH (06:15)
[2023-05-17 06:58] LABS: INR 1.26 (0.91-1.10); PARTIAL THROMBOPLASTIN TIME 36.1 SEC (24.3-34.3); PROTHROMBIN TIME 13.2 SECS (9.2-11.1)
[2023-05-17] MEDS: PROSOURCE / PROSTAT (PYXIS) 30 ML UDC GT SCH (07:42)
[2023-05-17] MEDS: POLYETHYLENE GLYCOL 3350 17 GM POWD.PACK PO SCH ×2 (09:00→21:34)
[2023-05-17] MEDS: PANTOPRAZOLE 40 MG/PACK PACK NG SCH (09:16)
[2023-05-17 12:00] VITALS: BP 114/66; TEMP 99.1; O2SAT 98
[2023-05-17 16:44] LABS: BASOPHILS # (AUTO) 0.1 K/uL (0.0-0.2); BASOPHILS % (AUTO) 2.1 % (0.0-2.0); EOSINOPHILS # (AUTO) 0.6 K/uL (0.0-0.7); EOSINOPHILS % (AUTO) 8.5 % (0.0-6.0); HEMATOCRIT 28 % (33-45); HEMOGLOBIN 9.2 g/dL (11.5-14.8); LYMPHOCYTES # (AUTO) 1.2 K/uL (0.8-4.8); LYMPHOCYTES % (AUTO) 18.2 % (20.0-44.0); MEAN CORPUSCULAR HEMOGLOBIN 31 PG (26.0-33.0); MEAN CORPUSCULAR HGB CONC 33 g/dl (31.0-36.0); MEAN CORPUSCULAR VOLUME 92 fL (82-100); MONOCYTES # (AUTO) 0.9 K/uL (0.1-1.30); MONOCYTES % (AUTO) 14.1 % (2.0-12.0); NEUTROPHILS # (AUTO) 3.7 K/uL (1.8-8.9); NEUTROPHILS % (AUTO) 57.1 % (43.0-81.0); PLATELET COUNT (AUTO) 92 K/uL (150-450); RED BLOOD CELL COUNT(AUTO) 2.98 MIL/uL (4.0-5.2); RED CELL DISTRIBUTION WIDTH 17.8 % (11.5-15.0); WHITE BLOOD COUNT (AUTO) 6.5 K/uL (4.3-11.0)
[2023-05-17 17:00] LABS: CALCIUM, SERUM 7.7 mg/dL (8.5-10.1); CREATININE 0.5 mg/dL (0.6-1.3); POTASSIUM 3.6 mmol/L (3.5-5.1)
[2023-05-17 17:22] LABS: EOSINOPHILS % (MANUAL) 6 % (0-4); LYMPHOCYTES % (MANUAL) 15 % (16-48); MONOCYTES % (MANUAL) 12 % (0-11.0); MYELOCYTES % 1 % (0-0); NEUTROPHILS % (MANUAL) 66 (42-76); PLATELET ESTIMATE DECREASED
[2023-05-17 20:00] VITALS: BP 114/74; TEMP 100; O2SAT 97
[2023-05-17] MEDS: IV NS 0.9% 250 ML IV PRN (20:24)
[2023-05-17] MEDS: ACETAMINOPHEN 650 MG/20.3 ML UDC NG PRN (20:48)
[2023-05-18] MEDS: METOCLOPRAMIDE HCL 10 MG/2 ML VIAL IV SCH ×4 (01:06→21:20)
[2023-05-18] MEDS: OFLOXACIN 0.3% OPHTH 5 ML BOTTLE EACHEYE SCH ×6 (01:07→21:22)
[2023-05-18 04:00] VITALS: BP 118/67; TEMP 98.6; O2SAT 98
[2023-05-18] MEDS: MEROPENEM 1 G in IV NS 0.9% 100 ML IV SCH ×3 (05:58→21:23)
[2023-05-18 06:52] LABS: BASOPHILS % (AUTO) 0.8 % (0.0-2.0); EOSINOPHILS # (AUTO) 0.4 K/uL (0.0-0.7); EOSINOPHILS % (AUTO) 7.5 % (0.0-6.0); HEMATOCRIT 27 % (33-45); LYMPHOCYTES # (AUTO) 1.3 K/uL (0.8-4.8); LYMPHOCYTES % (AUTO) 21.6 % (20.0-44.0); MEAN CORPUSCULAR HEMOGLOBIN 30 PG (26.0-33.0); MEAN CORPUSCULAR HGB CONC 33 g/dl (31.0-36.0); MEAN CORPUSCULAR VOLUME 92 fL (82-100); MONOCYTES # (AUTO) 0.8 K/uL (0.1-1.30); NEUTROPHILS # (AUTO) 3.4 K/uL (1.8-8.9); NEUTROPHILS % (AUTO) 57.1 % (43.0-81.0); PLATELET COUNT (AUTO) 86 K/uL (150-450); RED BLOOD CELL COUNT(AUTO) 2.96 MIL/uL (4.0-5.2); RED CELL DISTRIBUTION WIDTH 17.8 % (11.5-15.0); WHITE BLOOD COUNT (AUTO) 5.9 K/uL (4.3-11.0)
[2023-05-18] MEDS: ENOXAPARIN SODIUM 40 MG/0.4 ML DISP.SYRIN SQ SCH (07:00)
[2023-05-18 07:07] LABS: CALCIUM, SERUM 8.1 mg/dL (8.5-10.1); CREATININE 0.5 mg/dL (0.6-1.3); MAGNESIUM 2.1 mg/dL (1.8-2.4); PHOSPHORUS 4.1 mg/dL (2.5-4.9); POTASSIUM 3.5 mmol/L (3.5-5.1)
[2023-05-18 08:00] VITALS: BP 102/62; TEMP 98.8
[2023-05-18] MEDS: PANTOPRAZOLE 40 MG/PACK PACK NG SCH (09:08)
[2023-05-18] MEDS: PROSOURCE / PROSTAT (PYXIS) 30 ML UDC GT SCH (09:09)
[2023-05-18] MEDS: POLYETHYLENE GLYCOL 3350 17 GM POWD.PACK PO SCH ×2 (09:09→21:25)
[2023-05-18 12:26] LABS: BASOPHILS % (MANUAL) 0 % (0.0-2.0); EOSINOPHILS % (MANUAL) 8 % (0-4); HYPOCHROMASIA 1+; LYMPHOCYTES % (MANUAL) 19 % (16-48); MONOCYTES % (MANUAL) 11 % (0-11.0); NEUTROPHILS % (MANUAL) 62 (42-76); PLATELET ESTIMATE DECREASED
[2023-05-18 12:27] LABS: ANISOCYTOSIS 1+
[2023-05-18 16:00] VITALS: BP 109/72; TEMP 99.3; O2SAT 96
[2023-05-18 20:00] VITALS: BP 120/78; TEMP 99.1; O2SAT 96
[2023-05-19] MEDS: OFLOXACIN 0.3% OPHTH 5 ML BOTTLE EACHEYE SCH ×3 (01:21→08:41)
[2023-05-19] MEDS: METOCLOPRAMIDE HCL 10 MG/2 ML VIAL IV SCH ×2 (01:22→06:30)
[2023-05-19 04:00] VITALS: BP 105/70; TEMP 98.6; O2SAT 95
[2023-05-19] MEDS: MEROPENEM 1 G in IV NS 0.9% 100 ML IV SCH (04:27)
[2023-05-19] MEDS: ENOXAPARIN SODIUM 40 MG/0.4 ML DISP.SYRIN SQ SCH (06:37)
[2023-05-19 07:17] LABS: BASOPHILS % (AUTO) 0.6 % (0.0-2.0); EOSINOPHILS # (AUTO) 0.4 K/uL (0.0-0.7); EOSINOPHILS % (AUTO) 7.2 % (0.0-6.0); HEMATOCRIT 27 % (33-45); HEMOGLOBIN 9.1 g/dL (11.5-14.8); LYMPHOCYTES # (AUTO) 1.2 K/uL (0.8-4.8); LYMPHOCYTES % (AUTO) 24.3 % (20.0-44.0); MEAN CORPUSCULAR HEMOGLOBIN 31 PG (26.0-33.0); MEAN CORPUSCULAR HGB CONC 33 g/dl (31.0-36.0); MEAN CORPUSCULAR VOLUME 92 fL (82-100); MONOCYTES # (AUTO) 0.7 K/uL (0.1-1.30); MONOCYTES % (AUTO) 13.7 % (2.0-12.0); NEUTROPHILS # (AUTO) 2.8 K/uL (1.8-8.9); NEUTROPHILS % (AUTO) 54.2 % (43.0-81.0); PLATELET COUNT (AUTO) 84 K/uL (150-450); RED BLOOD CELL COUNT(AUTO) 2.98 MIL/uL (4.0-5.2); RED CELL DISTRIBUTION WIDTH 17.8 % (11.5-15.0); WHITE BLOOD COUNT (AUTO) 5.1 K/uL (4.3-11.0)
[2023-05-19 07:38] LABS: CREATININE 0.5 mg/dL (0.6-1.3); MAGNESIUM 2.1 mg/dL (1.8-2.4); PHOSPHORUS 3.9 mg/dL (2.5-4.9); POTASSIUM 3.5 mmol/L (3.5-5.1)
[2023-05-19] MEDS: PROSOURCE / PROSTAT (PYXIS) 30 ML UDC GT SCH (08:41)
[2023-05-19] MEDS: POLYETHYLENE GLYCOL 3350 17 GM POWD.PACK PO SCH (08:41)
[2023-05-19] MEDS: PANTOPRAZOLE 40 MG/PACK PACK NG SCH (08:41)
[2023-05-19 12:00] VITALS: BP 101/63; TEMP 99; O2SAT 98
[2023-05-19 12:08] LABS: ANISOCYTOSIS 1+; EOSINOPHILS % (MANUAL) 7 % (0-4); LYMPHOCYTES % (MANUAL) 19 % (16-48); MONOCYTES % (MANUAL) 11 % (0-11.0); NEUTROPHILS % (MANUAL) 63 (42-76); PLATELET ESTIMATE DECREASED
== END 2023-05-19 13:40 | disposition short-term general hospital (02) | DRG 853 ==
LOC: ICU 09:26 → TELE-TD 05-08 13:48 → TELE1 05-10 08:41 → MEDSG1 05-16 10:28
PROVIDERS: ADMIT Student in an Organized Health Care Education/Training Program; ATTEND Nurse Practitioner Acute Care
PROC: 5A1955Z Respiratory Ventilation, Greater than 96 Consecutive Hours (ICD-10-PCS; principal; 2023-04-24)
PROC: 0T768DZ Dilation of Right Ureter with Intraluminal Device, Via Natural or Artificial Opening Endoscopic (ICD-10-PCS; 2023-04-24)
PROC: 0BH17EZ Insertion of Endotracheal Airway into Trachea, Via Natural or Artificial Opening (ICD-10-PCS; 2023-04-24)
PROC: 0T768DZ Dilation of Right Ureter with Intraluminal Device, Via Natural or Artificial Opening Endoscopic (ICD-10-PCS; 2023-04-24)
PROC: 30233N1 Transfusion of Nonautologous Red Blood Cells into Peripheral Vein, Percutaneous Approach (ICD-10-PCS; 2023-04-24)
PROC: 30233R1 Transfusion of Nonautologous Platelets into Peripheral Vein, Percutaneous Approach (ICD-10-PCS; 2023-04-24)
PROC: BT16YZZ Fluoroscopy of Right Ureter using Other Contrast (ICD-10-PCS; 2023-04-24)
PROC: 02HV33Z Insertion of Infusion Device into Superior Vena Cava, Percutaneous Approach (ICD-10-PCS; 2023-04-26)
PROC: B548ZZA Ultrasonography of Superior Vena Cava, Guidance (ICD-10-PCS; 2023-04-26)
PROC: 05HD33Z Insertion of Infusion Device into Right Cephalic Vein, Percutaneous Approach (ICD-10-PCS; 2023-05-17)
DX: A41.50 Gram-negative sepsis, unspecified (principal); D65 Disseminated intravascular coagulation [defibrination syndrome]; I21.A1 Myocardial infarction type 2; J96.01 Acute respiratory failure with hypoxia; N17.0 Acute kidney failure with tubular necrosis; R65.21 Severe sepsis with septic shock; J96.02 Acute respiratory failure with hypercapnia; E87.1 Hypo-osmolality and hyponatremia; N13.6 Pyonephrosis; D61.818 Other pancytopenia; N20.2 Calculus of kidney with calculus of ureter; E87.20 Acidosis, unspecified; Z68.42 Body mass index [BMI] 45.0-49.9, adult; E87.0 Hyperosmolality and hypernatremia; S37.011A Minor contusion of right kidney, initial encounter; D68.9 Coagulation defect, unspecified; G72.81 Critical illness myopathy; D50.9 Iron deficiency anemia, unspecified; E86.1 Hypovolemia; E87.6 Hypokalemia; E66.01 Morbid (severe) obesity due to excess calories; K74.60 Unspecified cirrhosis of liver; Z79.899 Other long term (current) drug therapy; E88.09 Other disorders of plasma-protein metabolism, not elsewhere classified; I27.20 Pulmonary hypertension, unspecified; I70.0 Atherosclerosis of aorta; M89.8X9 Other specified disorders of bone, unspecified site; N18.9 Chronic kidney disease, unspecified; Z86.16 Personal history of COVID-19; Z87.442 Personal history of urinary calculi; Z87.891 Personal history of nicotine dependence; Z90.49 Acquired absence of other specified parts of digestive tract; Z83.1 Family history of other infectious and parasitic diseases; X58.XXXA Exposure to other specified factors, initial encounter; Y92.9 Unspecified place or not applicable; B96.1 Klebsiella pneumoniae [K. pneumoniae] as the cause of diseases classified elsewhere; R19.09 Other intra-abdominal and pelvic swelling, mass and lump
CPT/HCPCS: 31720; 36410; 36415; 36569; 36600; 71045-TC; 72197-TC; 74430-TC; 76705-TC; 76770-TC; 80048-TC; 80053-TC; 80061-TC; 80076-TC; 81001; 82378; 82533; 82550-TC; 82553; 82570-TC; 82607-TC; 82728-TC; 82784; 82803-TC; 83540-TC; 83605-TC; 83735-TC; 83935-TC; 83970; 84100-TC; 84155; 84165; 84300-TC; 84443-TC; 84478-TC; 85025-TC; 85396; 85610-TC; 85730-TC; 86225; 86235; 86304; 86334; 86431-TC; 86480; 86706; 86803; 86850-TC; 87040-TC; 87070-TC; 87081-TC; 87086-TC; 87340; 87806; 92526; 92611-TC; 93307-TC; 93970-TC; 94002-TC; 94003-TC; 94799-TC; 97110-TC; 97530-TC; A4217; A4223; A6253; A9563; A9575; C1769; C2617; C9113; G0378; J0282; J0330; J0692; J0696; J1200; J1650; J1720; J1940; J2185; J2250; J2270; J2405; J2704; J2765; J2916; J3010; J3490; J7030; J7040; J7042; J7050; J7060; J7120; P9016; P9034